=== PATIENT | female | born 1995 | race Caucasian/White ===

== ENCOUNTER 2017-08-26 13:23 | Observation (INO) | payer MEDICAID | END 2017-08-26 15:40 | disposition home or self-care (01) | LOC: MED SURG 13:23 → UNDOADMOB 13:23 → OB 13:23 → UNDODISOB 15:40 | PROVIDERS: ADMIT Family Medicine; ATTEND Family Medicine | DX: Z34.80 Encounter for supervision of other normal pregnancy, unspecified trimester (principal) | CPT/HCPCS: 59025; G0378 ==

== ENCOUNTER 2017-10-08 03:45 | Emergency (ER) | payer MEDICAID ==
--- NOTE | 2017-10-08 04:13 | ERPHSYRPT ---
- History of Present Illness Time Seen by Provider: 10/08/17 04:06 Historian: patient Exam Limitations: no limitations Patient Subjective Stated Complaint: pt states she started having paihn in her upper abd srappint around to back and ribs approx 30 minutes ago Triage Nursing Assessment: pt alert and oriented, answers questions approp. pt restless in bed and moaning with pain. respirations nonlabored with lugns cta. pt c/o epigastric pain wrapping around ribs to back. o2 100 on room air. Physician History: The patient is a 21-year-old female with her complaining of a sudden onset of upper abdominal pain that has wrapped around to her back began about an hour ago. This pain also occurred while she was but it lasted only about 10 minutes. She delivered a healthy baby about 4 weeks ago by . She's had no problems after the until an hour ago. She was slightly nauseated. She ate a pizza 8 hours ago. Timing/Duration: hour(s) (1) Activities at Onset: none Quality: sharpness, stabbing Abdominal Pain Onset Location: RUQ Pain Radiation: back Severity of Pain-Max: severe Severity of Pain-Current: severe Modifying Factors: Improves With: nothing Associated Symptoms: nausea Previous symptoms: same symptoms as today Allergies/Adverse Reactions: carbinoxamine [From Pediox] Allergy (Verified 10/08/17 04:01) chlorpheniramine [From Pediox] Allergy (Verified 10/08/17 04:01) pseudoephedrine [From Pediox] Allergy (Verified 10/08/17 04:01) Home Medications: Levothyroxine Sodium 112 Mcg [Synthroid 112 Mcg] 112 mcg PO DAILY 08/26/17 [History] Hx Tetanus, Diphtheria Vaccination/Date Given: Yes Hx Influenza Vaccination/Date Given: Yes Hx Pneumococcal Vaccination/Date Given: No Immunizations Up to Date: Yes - Review of Systems Constitutional: No Fever, No Chills Eyes: No Symptoms Ears, Nose, & Throat: No Symptoms Respiratory: No Cough, No Dyspnea Cardiac: No Chest Pain, No Edema, No Syncope Abdominal/Gastrointestinal: Abdominal Pain, Nausea Genitourinary Symptoms: No Dysuria Musculoskeletal: No Back Pain, No Neck Pain Skin: No Rash Neurological: No Dizziness, No Focal Weakness, No Sensory Changes Psychological: No Symptoms Endocrine: No Symptoms Hematologic/Lymphatic: No Symptoms Immunological/Allergic: No Symptoms All Other Systems: Reviewed and Negative - Past Medical History Other Medical History: narrowing of heart valve - Past Surgical History Past Surgical History: Yes Other Surgical History: heart surgery as a child. tubes as a child - Social History Smoking Status: Never smoker Exposure to second hand smoke: No Drug Use: none Patient Lives Alone: No - Female History Hx Last Menstrual Period: post Hx Now: No - Nursing Vital Signs Nursing Vital Signs: Initial Vital Signs Temperature 96.4 F 10/08/17 03:53 Pulse Rate 71 10/08/17 03:53 Respiratory Rate 24 10/08/17 03:53 Blood Pressure 91/51 10/08/17 03:53 O2 Sat by Pulse Oximetry 100 10/08/17 03:53 Pain Scale Pain Intensity 10 - Physical Exam General Appearance: moderate distress Eye Exam: PERRL/EOMI, eyes nml inspection Ears, Nose, Throat Exam: normal ENT inspection, pharynx normal, moist mucous membranes Neck Exam: normal inspection, non-tender, supple, full range of motion Respiratory Exam: normal breath sounds, lungs clear, No respiratory distress Cardiovascular Exam: regular rate/rhythm, normal heart sounds Gastrointestinal/Abdomen Exam: tenderness (RUQ) Pelvic Exam: not done Rectal Exam: not done Back Exam: normal inspection, normal range of motion, No CVA tenderness, No vertebral tenderness Extremity Exam: normal inspection, normal range of motion, pelvis stable Neurologic Exam: alert, oriented x 3, cooperative, normal mood/affect, nml cerebellar function, sensation nml, No motor deficits Skin Exam: normal color, warm, dry SpO2 Interpretation: normal SpO2: 100 Oxygen Delivery: Room Air - CT Exams Abdomen/Pelvis CT Interpretation: Negative, Tele-radiologist Report (per Dr Oakes.) Ordered Tests: Active Orders 24 hr Category Date Time Status IV Insertion STAT Care 10/08/17 04:18 Active ABDOMEN AND PELVIS W/0 CONTRAS [CT] Stat Exams 10/08/17 04:38 Taken CBC W DIFF Stat Lab 10/08/17 04:15 Completed CMP Stat Lab 10/08/17 04:15 Completed LIPASE Stat Lab 10/08/17 04:15 Completed Medication Summary Discontinued Medications Generic Name Dose Route Start Last Admin Trade Name Freq PRN Reason Stop Dose Admin Sodium Chloride 1,000 mls @ 999 mls/hr 10/08/17 04:37 10/08/17 04:49 Sodium Chloride 0.9% 1000 Ml IV 10/08/17 05:37 999 mls/hr .Q1H1M STA Administration Sodium Chloride Confirm 10/08/17 04:48 Sodium Chloride 0.9% 1000 Ml Administered 10/08/17 04:49 Dose 1,000 mls @ ud .ROUTE .STK-MED ONE Morphine Sulfate 8 mg 10/08/17 04:37 10/08/17 04:49 Morphine Sulfate 10 Mg/Ml IV 10/08/17 04:38 8 mg STAT ONE Administration Morphine Sulfate Confirm 10/08/17 04:47 Morphine Sulfate 10 Mg/Ml Administered 10/08/17 04:48 Dose 10 mg .ROUTE .STK-MED ONE Ondansetron HCl 4 mg 10/08/17 04:37 10/08/17 04:49 Zofran 4 Mg/2 Ml Vial IV 10/08/17 04:38 4 mg STAT ONE Administration Ondansetron HCl Confirm 10/08/17 04:47 Zofran 4 Mg/2 Ml Vial Administered 10/08/17 04:48 Dose 4 mg .ROUTE .STK-MED ONE Lab/Rad Data: Laboratory Result Diagrams 10/08/17 04:15 10/08/17 04:15 Laboratory Results 10/08/17 10/08/17 Range/Units 04:15 04:15 WBC 5.2 (4.0-10.5) K/mm3 RBC 3.85 L (4.1-5.4) M/mm3 Hgb 12.1 (12.0-16.0) gm/dl Hct 36.1 (35-47) % MCV 93.8 (78-100) fl MCH 31.4 (26-32) pg MCHC 33.5 (32-36) g/dl RDW 12.7 (11.5-14.0) % Plt Count 265 (150-450) K/mm3 MPV 10.0 H (6-9.5) fl Gran % 56.5 (36.0-66.0) % Lymphocytes % 32.9 (24.0-44.0) % Monocytes % 7.7 (0.0-12.0) % Eosinophils % 2.5 (0.00-5.0) % Basophils % 0.4 (0.0-0.4) % Basophils # 0.02 (0-0.4) Sodium 144 (136-145) mEq/L Potassium 3.8 (3.5-5.1) mEq/L Chloride 105 (98-107) mEq/L Carbon Dioxide 27.4 (21-32) mEq/L Anion Gap 15.6 H (5-15) MEQ/L BUN 14 (9-20) mg/dL Creatinine 1.07 (0.55-1.30) mg/dl Estimated GFR > 60 ML/MIN Glucose 116 H (70-110) MG/DL Calcium 8.9 (8.5-10.1) mg/dL Total Bilirubin 0.40 (0.2-1.0) mg/dL AST 34 (15-37) U/L ALT 54 (12-78) U/L Alkaline Phosphatase 54 (46-116) U/L Serum Total Protein 7.7 (6.4-8.2) gm/dL Albumin 3.5 (3.4-5.0) g/dL Lipase 161 (73-393) U/L - Progress Progress: improved Progress Note: 10/08/17 04:17 After the PE and I left the room, the pain resolved. 10/08/17 04:37 Pt's pain has returned. 10/08/17 06:03 Pt given MSO4 8 mg, zofran 4 mg, and fluids by IV with good results. Counseled pt/family regarding: lab results, diagnosis, need for follow-up, rad results - Departure Time of Disposition: 06:04 Departure Disposition: Home Clinical Impression: Biliary colic Condition: Stable Critical Care Time: No Referrals: DOCTOR,NO FAMILY [Primary Care Provider] - Additional Instructions: You have biliary colic. The CT scan of the abdomen did not show any stones in the gallbladder. You need to have an ultrasound done of the gallbladder. This is more sensitive for gallstones than the CT scan. You were given morphine 8 mg , Zofran 4 mg, and fluids by IV in the ER. Follow-up for further evaluation. Avoid eating fatty foods.
[2017-10-08 04:35] LABS: BASOPHIL % 0.4 % (0.0-0.4); Eosinophil % 2.5 % (0.00-5.0); Granulocytes % 56.5 % (36.0-66.0); Lymphocytes % 32.9 % (24.0-44.0); Mean Cell Volume 93.8 fl (78-100); Mean Corpuscular Hemoglobin 31.4 pg (26-32); Monocytes % 7.7 % (0.0-12.0); Platelet Count 265 K/mm3 (150-450); Red Blood Count 3.85 M/mm3 (4.1-5.4); Red Cell Distribution Width 12.7 % (11.5-14.0); White Blood Count 5.2 K/mm3 (4.0-10.5)
[2017-10-08] MEDS ORDERED: MORPHINE SULFATE 10 MG/ML IV ONE (04:37)
[2017-10-08] MEDS ORDERED: Sodium Chloride 0.9% 1000 ML 1,000 ML IV STA (04:37)
[2017-10-08] MEDS ORDERED: Zofran 4 MG/2 ML VIAL IV ONE (04:37)
[2017-10-08] MEDS ORDERED: Zofran 4 MG/2 ML VIAL ONE (04:47)
[2017-10-08] MEDS ORDERED: MORPHINE SULFATE 10 MG/ML ONE (04:47)
[2017-10-08] MEDS ORDERED: Sodium Chloride 0.9% 1000 ML 1,000 ML ONE (04:48)
[2017-10-08 04:55] LABS: ALBUMIN 3.5 g/dL (3.4-5.0); ALKALINE PHOSPHATASE 54 U/L (46-116); ANION GAP 15.6 MEQ/L (5-15); BLOOD UREA NITROGEN 14 mg/dL (9-20); CHLORIDE 105 mEq/L (98-107); Carbon Dioxide 27.4 mEq/L (21-32); Glucose 116 MG/DL (70-110); LIPASE 161 U/L (73-393); Potassium 3.8 mEq/L (3.5-5.1); SGOT/AST 34 U/L (15-37); SGPT/ALT 54 U/L (12-78); SODIUM 144 mEq/L (136-145); Total Protein 7.7 gm/dL (6.4-8.2)
[2017-10-08 06:01] VITALS: BP 137/65
[2017-10-08 06:32] VITALS: PULSE 66; O2SAT 99
--- NOTE | 2017-10-08 08:44 | XRAY ---
Indication: Sudden onset abdominal pain. Multiple contiguous axial images obtained through the abdomen and pelvis without contrast as ordered. Comparison: None. Lung bases are clear. Heart is not enlarged. Stomach is distended with food/fluid. Noncontrasted stomach and bowel loops again appear nonobstructed. Normal appendix. No free fluid/air. Remaining liver, gallbladder, pancreas, spleen, adrenal glands, kidneys, ureters, bladder, uterus, and aorta appear unremarkable for noncontrast exam. Osseous structures intact. Impression: Negative CT abdomen/pelvis without contrast exam. Comment: Preliminary interpretation was made by [facility]. No discrepancy. CT DI 23.68
== END 2017-10-08 06:27 | disposition home or self-care (01) ==
LOC: ED 03:45
DX: K80.50 Calculus of bile duct without cholangitis or cholecystitis without obstruction (principal); R10.10 Upper abdominal pain, unspecified; R10.13 Epigastric pain; R11.0 Nausea
CPT/HCPCS: 36000; 36415; 74176; 80053; 83690; 85025; 96360; 96361; 96374; 96375; 99284; J2270; J2405

== ENCOUNTER 2017-10-26 05:25 | Emergency (ER) | payer MEDICAID ==
[2017-10-26 05:40] VITALS: PULSE 65; O2SAT 99
[2017-10-26] MEDS ORDERED: Sodium Chloride 0.9% 1000 ML 1,000 ML IV STA (05:53)
[2017-10-26] MEDS ORDERED: TORAdol 30 mg Injection IV ONE (05:53)
[2017-10-26] MEDS ORDERED: Zofran 4 MG/2 ML VIAL IV ONE (05:53)
[2017-10-26] MEDS ORDERED: Pepcid 20 MG VIAL IV ONE (05:54)
--- NOTE | 2017-10-26 06:01 | ERPHSYRPT ---
- History of Present Illness Time Seen by Provider: 10/26/17 05:52 Historian: patient Exam Limitations: no limitations Patient Subjective Stated Complaint: Abdominal pain Triage Nursing Assessment: Pt states initial onset of upper right quadrant abdominal pain beginning 3-4 months ago, states at 09/12/2017 with continued abdominal pain after. Pt states she had Hida scan yesterday and continued pain today. Physician History: Pt was diagnosed with gallstones last week. She woke up with severe RUQ abdominal pain at 2 AM, nauseated. She denies vomiting, diarrhea, fever, other complaints. She underwent HIDA scan yesterday, revealing possible cystic duct obstruction. Timing/Duration: hour(s) (4), worse Activities at Onset: none Quality: cramping Abdominal Pain Onset Location: RUQ Pain Radiation: back Severity of Pain-Max: severe Severity of Pain-Current: severe Modifying Factors: Improves With: nothing Associated Symptoms: nausea Previous symptoms: same symptoms as today Allergies/Adverse Reactions: carbinoxamine [From Pediox] Allergy (Verified 10/08/17 04:01) chlorpheniramine [From Pediox] Allergy (Verified 10/08/17 04:01) pseudoephedrine [From Pediox] Allergy (Verified 10/08/17 04:01) Home Medications: Levothyroxine Sodium 112 Mcg [Synthroid 112 Mcg] 112 mcg PO DAILY 08/26/17 [History] Hx Tetanus, Diphtheria Vaccination/Date Given: Yes Hx Influenza Vaccination/Date Given: Yes Hx Pneumococcal Vaccination/Date Given: No Immunizations Up to Date: Yes - Review of Systems Constitutional: No Symptoms Abdominal/Gastrointestinal: Abdominal Pain, Nausea All Other Systems: Reviewed and Negative - Past Medical History Pertinent Past Medical History: Yes Neurological History: No Pertinent History ENT History: No Pertinent History Cardiac History: No Pertinent History Respiratory History: No Pertinent History Endocrine Medical History: No Pertinent History Musculoskeletal History: No Pertinent History GI Medical History: No Pertinent History History: No Pertinent History Psycho-Social History: No Pertinent History Female Reproductive Disorders: No Pertinent History Other Medical History: narrowing of heart valve - Past Surgical History Past Surgical History: Yes Neuro Surgical History: No Pertinent History Cardiac: No Pertinent History Respiratory: No Pertinent History Gastrointestinal: No Pertinent History Genitourinary: No Pertinent History Musculoskeletal: No Pertinent History Female Surgical History: Section Other Surgical History: heart surgery as a child. tubes as a child - Social History Smoking Status: Never smoker Exposure to second hand smoke: No Drug Use: none Patient Lives Alone: Yes - Female History Hx Now: No - Nursing Vital Signs Nursing Vital Signs: Initial Vital Signs Temperature 97.3 F 10/26/17 05:35 Pulse Rate 65 10/26/17 05:35 Respiratory Rate 16 10/26/17 05:35 Blood Pressure 204/86 10/26/17 05:35 O2 Sat by Pulse Oximetry 99 10/26/17 05:35 Pain Scale Pain Intensity 10 - Physical Exam General Appearance: no apparent distress Eye Exam: eyes nml inspection Ears, Nose, Throat Exam: normal ENT inspection Neck Exam: normal inspection, non-tender Respiratory Exam: normal breath sounds, lungs clear Cardiovascular Exam: regular rate/rhythm, normal heart sounds, normal peripheral pulses, No murmur Gastrointestinal/Abdomen Exam: soft, normal bowel sounds, tenderness (mod. RUQ) , No distention, No mass, No guarding, No rebound Back Exam: normal inspection, No CVA tenderness Extremity Exam: normal inspection Neurologic Exam: alert, oriented x 3, cooperative, normal mood/affect Skin Exam: normal color, warm, dry, No rash Lymphatic Exam: No adenopathy SpO2: 99 Oxygen Delivery: Room Air - Course Nursing assessment & vital signs reviewed: Yes Ordered Tests: Active Orders 24 hr Category Date Time Status IV Insertion STAT Care 10/26/17 05:53 Active AMYLASE Stat Lab 10/26/17 05:53 Ordered CBC W DIFF Stat Lab 10/26/17 05:53 Ordered CMP Stat Lab 10/26/17 05:53 Ordered HCG,QUALITATIVE URINE Stat Lab 10/26/17 06:01 Ordered LIPASE Stat Lab 10/26/17 05:53 Ordered Lactic Acid Stat Lab 10/26/17 05:53 Ordered PROTIME WITH INR Stat Lab 10/26/17 05:53 Ordered UA W/RFX UR CULTURE Stat Lab 10/26/17 05:53 Ordered Medication Summary Generic Name Dose Route Start Last Admin Trade Name Freq PRN Reason Stop Dose Admin Sodium Chloride 1,000 mls @ 999 mls/hr 10/26/17 05:53 Sodium Chloride 0.9% 1000 Ml IV 10/26/17 06:53 .Q1H1M STA Discontinued Medications Generic Name Dose Route Start Last Admin Trade Name Freq PRN Reason Stop Dose Admin Famotidine 20 mg 10/26/17 05:54 Pepcid 20 Mg Vial IV 10/26/17 05:55 STAT ONE Ketorolac Tromethamine 30 mg 10/26/17 05:53 Toradol 30 Mg Injection IV 10/26/17 05:54 STAT ONE Ondansetron HCl 4 mg 10/26/17 05:53 Zofran 4 Mg/2 Ml Vial IV 10/26/17 05:54 STAT ONE - Progress Progress: improved Progress Note: 10/26/17 06:06 Pt states, her pain completely resolved, she feels 100% better, denies nausea, she is afebrile, and stable, refused labs iv. access and further tretament, wants to go home and follow up with her PCP, and surgeon. I gave her Rx for , educated her about possible complications, and asked to return immediately if severe pain, vomiting, or fever> 102 F. - Departure Time of Disposition: 06:07 Departure Disposition: Home Clinical Impression: Biliary colic Condition: Stable Critical Care Time: No Referrals: EMILY MARTINEZ [Primary Care Provider] - Additional Instructions: Rest x2-3 days, continue liquid diet, follow up with your primary care doctor and surgeon, return if severe pain, vomiting, or fever> 102 F! Prescriptions: Phenobarb/Hyoscy/Atropine/Scop [ Tablet] 16.2 mg PO Q6H #20 tablet
[2017-10-26 06:07] VITALS: BP 145/88
== END 2017-10-26 06:21 | disposition home or self-care (01) ==
LOC: ED 05:25
DX: K80.50 Calculus of bile duct without cholangitis or cholecystitis without obstruction (principal); R11.0 Nausea; Z79.899 Other long term (current) drug therapy
CPT/HCPCS: 99281

== ENCOUNTER 2017-11-07 16:50 | Emergency (ER) | payer MEDICAID ==
[2017-11-07] MEDS ORDERED: Zofran 4 MG/2 ML VIAL IV ONE (17:04)
[2017-11-07] MEDS ORDERED: MORPHINE SULFATE 4 MG INJ IV ONE (17:04)
[2017-11-07] MEDS ORDERED: Sodium Chloride 0.9% 1000 ML 1,000 ML IV STA (17:04)
--- NOTE | 2017-11-07 17:09 | ERPHSYRPT ---
- History of Present Illness Time Seen by Provider: 11/07/17 16:59 Historian: patient Exam Limitations: no limitations Patient Subjective Stated Complaint: PT REPORTS SHE ATE [place] ET BEGAN HAVING ABD PAIN-PT HAS KNOWN BAD GALL BLADDER-DENIES VOMITING OR DIARRHEA Triage Nursing Assessment: PT PINK WARM ET [id number] SOFT ET TENDER TO PALP- BOWEL SOUND SPRESENT Physician History: 21-year-old white female with history of epigastric pain and problems with her gallbladder, arrives with complaint of pain in the epigastric region occurring since around 1:00. According to patient she has a history of sludge in her gallbladder she had an abnormal HIDA scan. She had seen her surgeon today and apparently had scheduled cholecystectomy for November 20 she states she went out to eat and had cheese ravioli she began to have pain in her epigastric region. She states she has some vomiting yesterday. No fevers. Past medical history includes narrowing of her heart valve. Past surgical history includes and heart surgery as a child, myringotomy tubes as a child. Social history patient denies tobacco alcohol or illicit drug use. Timing/Duration: today Activities at Onset: other (ate cheese ravioli) Quality: cramping Abdominal Pain Onset Location: epigastric Pain Radiation: no radiation Severity of Pain-Max: moderate Severity of Pain-Current: moderate Modifying Factors: Improves With: nothing Associated Symptoms: nausea, vomiting (Vomited yesterday), No back, No chest pain, No diaphoresis, No diarrhea, No fever/chills, No fatigue, No headache, No heartburn, No loss of appetite, No neck pain, No rash, No shortness of breath, No syncope Previous symptoms: same symptoms as today (patient with similar symptoms secondary to her gallbladder) Allergies/Adverse Reactions: carbinoxamine [From Pediox] Allergy (Verified 11/07/17 16:59) chlorpheniramine [From Pediox] Allergy (Verified 11/07/17 16:59) pseudoephedrine [From Pediox] Allergy (Verified 11/07/17 16:59) Home Medications: Levothyroxine Sodium 112 Mcg [Synthroid 112 Mcg] 112 mcg PO DAILY 08/26/17 [History] Hx Tetanus, Diphtheria Vaccination/Date Given: Yes Hx Influenza Vaccination/Date Given: Yes Hx Pneumococcal Vaccination/Date Given: No Immunizations Up to Date: Yes - Review of Systems Constitutional: No Fever, No Chills Eyes: No Symptoms Ears, Nose, & Throat: No Symptoms Respiratory: No Cough, No Dyspnea Cardiac: No Chest Pain, No Edema, No Syncope Abdominal/Gastrointestinal: Abdominal Pain, Nausea, Vomiting, No Diarrhea, No Constipation, No Hematemesis, No Hematochezia, No Melena, No Dysphagia, No Appetite Changes Genitourinary Symptoms: No Dysuria Musculoskeletal: No Back Pain, No Neck Pain Skin: No Rash Neurological: No Dizziness, No Focal Weakness, No Sensory Changes Psychological: No Symptoms Endocrine: No Symptoms All Other Systems: Reviewed and Negative - Past Medical History Pertinent Past Medical History: Yes Neurological History: No Pertinent History ENT History: No Pertinent History Cardiac History: No Pertinent History Respiratory History: No Pertinent History Endocrine Medical History: No Pertinent History Musculoskeletal History: No Pertinent History GI Medical History: No Pertinent History History: No Pertinent History Psycho-Social History: No Pertinent History Female Reproductive Disorders: No Pertinent History Other Medical History: narrowing of heart valve - Past Surgical History Past Surgical History: Yes Neuro Surgical History: No Pertinent History Cardiac: No Pertinent History Respiratory: No Pertinent History Gastrointestinal: No Pertinent History Genitourinary: No Pertinent History Musculoskeletal: No Pertinent History Female Surgical History: Section Other Surgical History: heart surgery as a child. tubes as a child - Social History Smoking Status: Never smoker Exposure to second hand smoke: No Drug Use: none Patient Lives Alone: Yes - Female History Hx Last Menstrual Period: OCT 19 Hx Now: No - Nursing Vital Signs Nursing Vital Signs: Initial Vital Signs Temperature 97.3 F 11/07/17 17:00 Pulse Rate 68 11/07/17 17:00 Respiratory Rate 18 11/07/17 17:00 Blood Pressure 136/71 11/07/17 17:00 O2 Sat by Pulse Oximetry 98 11/07/17 17:00 Pain Scale Pain Intensity 0 - Physical Exam General Appearance: mild distress Eye Exam: PERRL/EOMI, eyes nml inspection Ears, Nose, Throat Exam: normal ENT inspection, pharynx normal, moist mucous membranes Neck Exam: normal inspection, non-tender, supple, full range of motion Respiratory Exam: normal breath sounds, lungs clear, No respiratory distress Cardiovascular Exam: regular rate/rhythm, normal heart sounds Gastrointestinal/Abdomen Exam: soft, normal bowel sounds, tenderness ( epigastric tenderness), No distention, No mass, No guarding, No ecchymosis, No pulsatile mass, No rebound, No hernia, No hepatomegaly, No organomegaly, No splenomegaly, No bruit Back Exam: normal inspection, normal range of motion, No CVA tenderness, No vertebral tenderness Extremity Exam: normal inspection, normal range of motion, pelvis stable Neurologic Exam: alert, oriented x 3, cooperative, normal mood/affect, nml cerebellar function, sensation nml, No motor deficits Skin Exam: normal color, warm, dry SpO2 Interpretation: normal (98%) SpO2: 98 Oxygen Delivery: Room Air Ordered Tests: Active Orders 24 hr Category Date Time Status IV Insertion STAT Care 11/07/17 17:04 Active AMYLASE Stat Lab 11/07/17 17:15 Completed CBC W DIFF Stat Lab 11/07/17 17:15 Completed CMP Stat Lab 11/07/17 17:15 Completed HCG QUALITATIVE,SERUM Stat Lab 11/07/17 17:15 Completed LIPASE Stat Lab 11/07/17 17:15 Completed Medication Summary Discontinued Medications Generic Name Dose Route Start Last Admin Trade Name Freq PRN Reason Stop Dose Admin Sodium Chloride 1,000 mls @ 999 mls/hr 11/07/17 17:04 11/07/17 17:15 Sodium Chloride 0.9% 1000 Ml IV 11/07/17 18:04 999 mls/hr .Q1H1M STA Administration Sodium Chloride Confirm 11/07/17 17:12 Sodium Chloride 0.9% 1000 Ml Administered 11/07/17 17:13 Dose 1,000 mls @ ud .ROUTE .STK-MED ONE Morphine Sulfate 4 mg 11/07/17 17:04 11/07/17 17:15 Morphine Sulfate 4 Mg Inj IV 11/07/17 17:05 4 mg STAT ONE Administration Morphine Sulfate Confirm 11/07/17 17:12 Morphine Sulfate 4 Mg Inj Administered 11/07/17 17:13 Dose 4 mg .ROUTE .STK-MED ONE Ondansetron HCl 4 mg 11/07/17 17:04 11/07/17 17:15 Zofran 4 Mg/2 Ml Vial IV 11/07/17 17:05 4 mg STAT ONE Administration Ondansetron HCl Confirm 11/07/17 17:12 Zofran 4 Mg/2 Ml Vial Administered 11/07/17 17:13 Dose 4 mg .ROUTE .STK-MED ONE Lab/Rad Data: Laboratory Result Diagrams 11/07/17 17:15 11/07/17 17:15 Laboratory Results 11/07/17 11/07/17 11/07/17 Range/Units 17:15 17:15 17:15 WBC 5.4 (4.0-10.5) K/mm3 RBC 3.72 L (4.1-5.4) M/mm3 Hgb 11.5 L (12.0-16.0) gm/dl Hct 33.9 L (35-47) % MCV 91.1 (78-100) fl MCH 30.9 (26-32) pg MCHC 33.9 (32-36) g/dl RDW 13.8 (11.5-14.0) % Plt Count 246 (150-450) K/mm3 MPV 10.3 H (6-9.5) fl Gran % 54.8 (36.0-66.0) % Lymphocytes % 35.5 (24.0-44.0) % Monocytes % 7.1 (0.0-12.0) % Eosinophils % 2.0 (0.00-5.0) % Basophils % 0.6 (0.0-0.4) % Basophils # 0.03 (0-0.4) Sodium 139 (136-145) mEq/L Potassium 4.7 (3.5-5.1) mEq/L Chloride 103 (98-107) mEq/L Carbon Dioxide 23.5 (21-32) mEq/L Anion Gap 16.8 H (5-15) MEQ/L BUN 10 (9-20) mg/dL Creatinine 0.87 (0.55-1.30) mg/dl Estimated GFR > 60 ML/MIN Glucose 85 (70-110) MG/DL Calcium 9.5 (8.5-10.1) mg/dL Total Bilirubin 0.60 (0.2-1.0) mg/dL AST 111 H (15-37) U/L ALT 87 H (12-78) U/L Alkaline Phosphatase 67 (46-116) U/L Serum Total Protein 7.8 (6.4-8.2) gm/dL Albumin 3.6 (3.4-5.0) g/dL Amylase 44 (25-115) U/L Lipase 157 (73-393) U/L Serum , Qual NEGATIVE (Negative) - Progress Progress: improved Progress Note: 11/07/17 17:55 21-year-old white female with history of known gallbladder sludge. She is scheduled for cholecystectomy surgery November 18. Patient apparently was seen by her surgeon today and went to [place] thereafter, she began to have epigastric pain nausea. Patient is given normal saline 1 L morphine 4 mg IV and Zofran 4 mg IV. She is feeling much better, CBC is essentially normal awaiting amylase lipase hCG and chemistry. Anticipate discharge. Patient will be warned to avoid fatty foods. 11/07/17 18:06 Patient feeling much better. Labs essentially normal with the exception of mild elevation of sgot and sgpt. Will discharge. 11/07/17 18:08 - Departure Time of Disposition: 18:06 Departure Disposition: Home Clinical Impression: Biliary colic Abdominal pain Qualifiers: Abdominal location: epigastric Qualified Code(s): R10.13 - Epigastric pain Condition: Fair Critical Care Time: No Referrals: EMILY MARTINEZ [Primary Care Provider] - Additional Instructions: Return home. Plenty of fluids clear fluids only 24-48 hours if abdominal pain. Follow-up with your surgeon or your family doctor. Avoid fatty foods. Return for acute distress or for severe symptoms. Tylenol every 4-6 hours as needed for pain.
[2017-11-07] MEDS ORDERED: Sodium Chloride 0.9% 1000 ML 1,000 ML ONE (17:12)
[2017-11-07] MEDS ORDERED: Zofran 4 MG/2 ML VIAL ONE (17:12)
[2017-11-07] MEDS ORDERED: MORPHINE SULFATE 4 MG INJ ONE (17:12)
[2017-11-07 17:26] LABS: BASOPHIL % 0.6 % (0.0-0.4); Basophil (Absolute #) 0.03 (0-0.4); Eosinophil (Absolute #) 0.11 (0-0.5); Granulocyte Absolute (ANC) 2.95 (1.4-6.9); Granulocytes % 54.8 % (36.0-66.0); Hematocrit 33.9 % (35-47); Hemoglobin 11.5 gm/dl (12.0-16.0); Lymphocyte (Absolute #) 1.91 (1.0-4.6); Lymphocytes % 35.5 % (24.0-44.0); Mean Cell Volume 91.1 fl (78-100); Mean Corpuscular Hemoglobin 30.9 pg (26-32); Mean Corpuscular Hgb Concent. 33.9 g/dl (32-36); Mean Platelet Volume 10.3 fl (6-9.5); Monocyte (Absolute #) 0.38 (0.0-1.3); Monocytes % 7.1 % (0.0-12.0); Platelet Count 246 K/mm3 (150-450); Red Blood Count 3.72 M/mm3 (4.1-5.4); Red Cell Distribution Width 13.8 % (11.5-14.0); White Blood Count 5.4 K/mm3 (4.0-10.5)
[2017-11-07 17:58] VITALS: BP 142/63; PULSE 63
[2017-11-07 17:59] LABS: ALBUMIN 3.6 g/dL (3.4-5.0); ALKALINE PHOSPHATASE 67 U/L (46-116); AMYLASE 44 U/L (25-115); ANION GAP 16.8 MEQ/L (5-15); BLOOD UREA NITROGEN 10 mg/dL (9-20); CHLORIDE 103 mEq/L (98-107); Calcium 9.5 mg/dL (8.5-10.1); Carbon Dioxide 23.5 mEq/L (21-32); Creatinine 1 0.87 mg/dl (0.55-1.30); EST GLOMERULAR FILTRATION RATE > 60 ML/MIN; Glucose 85 MG/DL (70-110); LIPASE 157 U/L (73-393); SGOT/AST 111 U/L (15-37); SGPT/ALT 87 U/L (12-78); SODIUM 139 mEq/L (136-145); Total Protein 7.8 gm/dL (6.4-8.2)
[2017-11-07 18:03] LABS: Potassium 4.7 mEq/L (3.5-5.1)
[2017-11-07 18:19] VITALS: O2SAT 98
== END 2017-11-07 18:20 | disposition home or self-care (01) ==
LOC: ED 16:50
DX: K80.50 Calculus of bile duct without cholangitis or cholecystitis without obstruction (principal); R10.13 Epigastric pain
CPT/HCPCS: 36000; 36415; 80053; 82150; 83690; 84703; 85025; 96360; 96374; 96375; 99284; J2270; J2405

== ENCOUNTER 2017-11-09 06:18 | Emergency (ER) | payer MEDICAID ==
[2017-11-09] MEDS ORDERED: Sodium Chloride 0.9% 1000 ML 1,000 ML IV STA (06:27)
[2017-11-09] MEDS ORDERED: Pepcid 20 MG VIAL IV ONE ×2 (06:27→06:48)
[2017-11-09] MEDS ORDERED: Zofran 4 MG/2 ML VIAL IV ONE (06:38)
[2017-11-09] MEDS ORDERED: Hydromorphone 1 mg/ml Ampule IV ONE (06:38)
[2017-11-09] MEDS ORDERED: Sodium Chloride 0.9% 1000 ML 1,000 ML ONE (06:48)
[2017-11-09] MEDS ORDERED: Hydromorphone 1 mg/ml Ampule ONE (06:48)
[2017-11-09] MEDS ORDERED: Zofran 4 MG/2 ML VIAL ONE (06:48)
[2017-11-09 06:49] LABS: BASOPHIL % 0.6 % (0.0-0.4); Basophil (Absolute #) 0.02 (0-0.4); Eosinophil % 1.1 % (0.00-5.0); Eosinophil (Absolute #) 0.04 (0-0.5); Granulocyte Absolute (ANC) 2.14 (1.4-6.9); Granulocytes % 58.9 % (36.0-66.0); Hematocrit 37.1 % (35-47); Hemoglobin 12.5 gm/dl (12.0-16.0); Lymphocyte (Absolute #) 1.25 (1.0-4.6); Lymphocytes % 34.4 % (24.0-44.0); Mean Cell Volume 92.3 fl (78-100); Mean Corpuscular Hgb Concent. 33.7 g/dl (32-36); Mean Platelet Volume 9.8 fl (6-9.5); Monocyte (Absolute #) 0.18 (0.0-1.3); Platelet Count 251 K/mm3 (150-450); Red Blood Count 4.02 M/mm3 (4.1-5.4); Red Cell Distribution Width 13.8 % (11.5-14.0); White Blood Count 3.6 K/mm3 (4.0-10.5)
[2017-11-09 06:52] LABS: Appearance CLEAR (CLEAR); Glucose NEGATIVE (NEGATIVE); Ketones NEGATIVE (NEGATIVE); Leukocyte Esterase NEGATIVE (NEGATIVE); Nitrite NEGATIVE (NEGATIVE); Protein,Urine Dip NEGATIVE (Negative); Specific Gravity 1.015 (1.005-1.025); Urobilinogen 1 mg/dL (0-1)
[2017-11-09 06:53] LABS: Blood NEGATIVE Ery/ul (0-5)
[2017-11-09 07:16] LABS: ALBUMIN 3.9 g/dL (3.4-5.0); Direct Bilirubin 0.59 MG/DL (0.0-0.2); Total Protein 8.2 gm/dL (6.4-8.2)
--- NOTE | 2017-11-09 07:17 | ERPHSYRPT ---
- History of Present Illness Time Seen by Provider: 11/09/17 07:16 Historian: patient Exam Limitations: no limitations Patient Subjective Stated Complaint: gallbladder pain starting at midnight. pain radiate to back. nausea and vomiting. Triage Nursing Assessment: alert and uncomfortable. states abdominal pain starting at about midnight. abdomen soft but tender on palpation. + bowel sounds. nausea and vomiting. Physician History: The patient is a 21-year-old obese female with her complaining of right upper quadrant abdominal pain and nausea after eating turkey tetrazzini with butter on it last night. She has known gallbladder obstruction and is scheduled to have her gallbladder removed on November 20. I saw the patient on October 08 for the same problem. On October 25 she had a hydroscan that showed complete complete obstruction of the duct. She also had an ultrasound that showed sludge. She was seen in this ER by another physician on October 26 for abdominal pain and also on November 07 for abdominal pain. Each time that she comes in she's had a previous meal with fat. She has been instructed several times to avoid fat. Her past medical history is significant for right upper quadrant abdominal pain and . Timing/Duration: today Activities at Onset: none Quality: sharpness Abdominal Pain Onset Location: RUQ Pain Radiation: no radiation Severity of Pain-Max: moderate Severity of Pain-Current: moderate Associated Symptoms: nausea Previous symptoms: same symptoms as today Allergies/Adverse Reactions: carbinoxamine [From Pediox] Allergy (Verified 11/07/17 16:59) chlorpheniramine [From Pediox] Allergy (Verified 11/07/17 16:59) pseudoephedrine [From Pediox] Allergy (Verified 11/07/17 16:59) Home Medications: Levothyroxine Sodium 112 Mcg [Synthroid 112 Mcg] 112 mcg PO DAILY 08/26/17 [History] Hx Tetanus, Diphtheria Vaccination/Date Given: Yes Hx Influenza Vaccination/Date Given: Yes Hx Pneumococcal Vaccination/Date Given: No Immunizations Up to Date: Yes - Review of Systems Constitutional: No Fever, No Chills Eyes: No Symptoms Ears, Nose, & Throat: No Symptoms Respiratory: No Cough, No Dyspnea Cardiac: No Chest Pain, No Edema, No Syncope Abdominal/Gastrointestinal: Abdominal Pain, Nausea Genitourinary Symptoms: No Dysuria Musculoskeletal: No Back Pain, No Neck Pain Skin: No Rash Neurological: No Dizziness, No Focal Weakness, No Sensory Changes Psychological: No Symptoms Endocrine: No Symptoms Hematologic/Lymphatic: No Symptoms Immunological/Allergic: No Symptoms All Other Systems: Reviewed and Negative - Past Medical History Pertinent Past Medical History: Yes Neurological History: No Pertinent History ENT History: No Pertinent History Cardiac History: No Pertinent History Respiratory History: No Pertinent History Endocrine Medical History: No Pertinent History Musculoskeletal History: No Pertinent History GI Medical History: No Pertinent History History: No Pertinent History Psycho-Social History: No Pertinent History Female Reproductive Disorders: No Pertinent History Other Medical History: narrowing of heart valve - Past Surgical History Past Surgical History: Yes Neuro Surgical History: No Pertinent History Cardiac: No Pertinent History Respiratory: No Pertinent History Gastrointestinal: No Pertinent History Genitourinary: No Pertinent History Musculoskeletal: No Pertinent History Female Surgical History: Section Other Surgical History: heart surgery as a child. tubes as a child - Social History Smoking Status: Never smoker Exposure to second hand smoke: No Drug Use: none Patient Lives Alone: No - Female History Hx Last Menstrual Period: october 19 Hx Now: No - Nursing Vital Signs Nursing Vital Signs: Initial Vital Signs Temperature 97.4 F 11/09/17 06:23 Pulse Rate 86 11/09/17 06:23 Respiratory Rate 20 11/09/17 06:23 Blood Pressure 149/93 11/09/17 06:23 O2 Sat by Pulse Oximetry 98 11/09/17 06:23 Pain Scale Pain Intensity 9 - Physical Exam General Appearance: mild distress Eye Exam: PERRL/EOMI, eyes nml inspection Ears, Nose, Throat Exam: normal ENT inspection, pharynx normal, moist mucous membranes Neck Exam: normal inspection, non-tender, supple, full range of motion Respiratory Exam: normal breath sounds, lungs clear, No respiratory distress Cardiovascular Exam: regular rate/rhythm, normal heart sounds Gastrointestinal/Abdomen Exam: normal bowel sounds, tenderness (RU Q), No guarding Pelvic Exam: not done Rectal Exam: not done Back Exam: normal inspection, normal range of motion, No CVA tenderness, No vertebral tenderness Extremity Exam: normal inspection, normal range of motion, pelvis stable Neurologic Exam: alert, oriented x 3, cooperative, normal mood/affect, nml cerebellar function, sensation nml, No motor deficits Skin Exam: normal color, warm, dry SpO2 Interpretation: normal SpO2: 98 Oxygen Delivery: Room Air Ordered Tests: Active Orders 24 hr Category Date Time Status Clean Catch Urine Specimen STAT Care 11/09/17 06:27 Active IV Insertion STAT Care 11/09/17 06:27 Active NPO (ED) STAT Care 11/09/17 06:27 Active AMYLASE Stat Lab 11/09/17 06:40 Completed CBC W DIFF Stat Lab 11/09/17 06:40 Completed HCG QUALITATIVE,SERUM Stat Lab 11/09/17 06:40 Completed Hepatic Function Panel Stat Lab 11/09/17 06:40 Completed LIPASE Stat Lab 11/09/17 06:40 Completed Lactic Acid Stat Lab 11/09/17 06:29 Completed UA W/RFX UR CULTURE Stat Lab 11/09/17 06:40 Completed Medication Summary Discontinued Medications Generic Name Dose Route Start Last Admin Trade Name Freq PRN Reason Stop Dose Admin Famotidine 20 mg 11/09/17 06:27 11/09/17 06:50 Pepcid 20 Mg Vial IV 11/09/17 06:28 20 mg STAT ONE Administration Famotidine Confirm 11/09/17 06:48 Pepcid 20 Mg Vial Administered 11/09/17 06:49 Dose 20 mg IV .STK-MED ONE Hydromorphone HCl 1 mg 11/09/17 06:38 11/09/17 06:50 Hydromorphone 1 Mg/Ml Ampule IV 11/09/17 06:39 1 mg STAT ONE Administration Hydromorphone HCl Confirm 11/09/17 06:48 Hydromorphone 1 Mg/Ml Ampule Administered 11/09/17 06:49 Dose 1 mg .ROUTE .STK-MED ONE Sodium Chloride 1,000 mls @ 999 mls/hr 11/09/17 06:27 11/09/17 06:49 Sodium Chloride 0.9% 1000 Ml IV 11/09/17 07:27 999 mls/hr .Q1H1M STA Administration Sodium Chloride Confirm 11/09/17 06:48 Sodium Chloride 0.9% 1000 Ml Administered 11/09/17 06:49 Dose 1,000 mls @ ud .ROUTE .STK-MED ONE Ondansetron HCl 4 mg 11/09/17 06:38 11/09/17 06:50 Zofran 4 Mg/2 Ml Vial IV 11/09/17 06:39 4 mg STAT ONE Administration Ondansetron HCl Confirm 11/09/17 06:48 Zofran 4 Mg/2 Ml Vial Administered 11/09/17 06:49 Dose 4 mg .ROUTE .STK-MED ONE Lab/Rad Data: Laboratory Result Diagrams 11/09/17 06:40 Laboratory Results 11/09/17 11/09/17 11/09/17 Range/Units 06:40 06:40 06:40 WBC (4.0-10.5) K/mm3 RBC (4.1-5.4) M/mm3 Hgb (12.0-16.0) gm/dl Hct (35-47) % MCV (78-100) fl MCH (26-32) pg MCHC (32-36) g/dl RDW (11.5-14.0) % Plt Count (150-450) K/mm3 MPV (6-9.5) fl Gran % (36.0-66.0) % Lymphocytes % (24.0-44.0) % Monocytes % (0.0-12.0) % Eosinophils % (0.00-5.0) % Basophils % (0.0-0.4) % Basophils # (0-0.4) Lactic Acid (0.4-2.0) Total Bilirubin 1.00 (0.2-1.0) mg/dL Direct Bilirubin 0.59 H (0.0-0.2) MG/DL AST 440 H (15-37) U/L ALT 270 H (12-78) U/L Alkaline Phosphatase 78 (46-116) U/L Serum Total Protein 8.2 (6.4-8.2) gm/dL Albumin 3.9 (3.4-5.0) g/dL Amylase 42 (25-115) U/L Lipase 177 (73-393) U/L Serum , Qual NEGATIVE (Negative) Ur Collection Type CLEAN CATCH Urine Color YELLOW (YELLOW) Urine Appearance CLEAR (CLEAR) Urine pH 6.0 (5-6) Ur Specific [place] 1.015 (1.005-1.025) Urine Protein NEGATIVE (Negative) Urine Ketones NEGATIVE (NEGATIVE) Urine Blood NEGATIVE (0-5) Codey/ul Urine Nitrite NEGATIVE (NEGATIVE) Urine Bilirubin + (NEGATIVE) Urine Urobilinogen 1 (0-1) mg/dL Ur Leukocyte Esterase NEGATIVE (NEGATIVE) Urine Culture Reflexed NO (NO) Urine Glucose NEGATIVE (NEGATIVE) mg/dL Specimen Received 11/09/17 0642 11/09/17 11/09/17 Range/Units 06:40 06:29 WBC 3.6 L (4.0-10.5) K/mm3 RBC 4.02 L (4.1-5.4) M/mm3 Hgb 12.5 (12.0-16.0) gm/dl Hct 37.1 (35-47) % MCV 92.3 (78-100) fl MCH 31.0 (26-32) pg MCHC 33.7 (32-36) g/dl RDW 13.8 (11.5-14.0) % Plt Count 251 (150-450) K/mm3 MPV 9.8 H (6-9.5) fl Gran % 58.9 (36.0-66.0) % Lymphocytes % 34.4 (24.0-44.0) % Monocytes % 5.0 (0.0-12.0) % Eosinophils % 1.1 (0.00-5.0) % Basophils % 0.6 (0.0-0.4) % Basophils # 0.02 (0-0.4) Lactic Acid 1.4 (0.4-2.0) Total Bilirubin (0.2-1.0) mg/dL Direct Bilirubin (0.0-0.2) MG/DL AST (15-37) U/L ALT (12-78) U/L Alkaline Phosphatase (46-116) U/L Serum Total Protein (6.4-8.2) gm/dL Albumin (3.4-5.0) g/dL Amylase (25-115) U/L Lipase (73-393) U/L Serum , Qual (Negative) Ur Collection Type Urine Color (YELLOW) Urine Appearance (CLEAR) Urine pH (5-6) Ur Specific [place] (1.005-1.025) Urine Protein (Negative) Urine Ketones (NEGATIVE) Urine Blood (0-5) Codey/ul Urine Nitrite (NEGATIVE) Urine Bilirubin (NEGATIVE) Urine Urobilinogen (0-1) mg/dL Ur Leukocyte Esterase (NEGATIVE) Urine Culture Reflexed (NO) Urine Glucose (NEGATIVE) mg/dL Specimen Received - Progress Progress: improved Progress Note: 11/09/17 07:49 Prior to my arrival and evaluation of the patient, Dr. Mae had prescribed famotidine 20 mg, Zofran 4 mg, Dilaudid 1 mg, and fluids by IV. When I entered the room for interview and evaluation, the patient vomited once. The patient then received Phenergan 50 mg by IM and Toradol 30 mg by IV. I also instructed in detail about avoiding any fat in her diet. Counseled pt/family regarding: lab results, diagnosis, need for follow-up - Departure Time of Disposition: 07:51 Departure Disposition: Home Clinical Impression: Biliary colic Condition: Stable Critical Care Time: No Referrals: EMILY MARTINEZ [Primary Care Provider] - Additional Instructions: Once again you have biliary colic that is a result of eating fatty foods. Please read the labels on food and avoid any foods that are fatty in nature until you have your gallbladder removed on November 20. You were given famotidine 20 mg, Zofran 4 mg, Dilaudid 1 mg, Toradol 30 mg, and fluids by IV in the ER. You were also given Phenergan 50 mg by IM. If the condition worsens at any time, feel free to return to the ER. Otherwise, you were given a prescription for Phenergan 25 mg suppositories every 8 hours as needed for nausea and Dimock 5 mg every 4-6 hours as needed for pain. Prescriptions: Promethazine HCl 25 mg Supp [Phenergan 25 mg Supp] 25 mg HI Q8H PRN PRN # 12 supp.rect PRN Reason: Nausea/Vomiting Hydrocodone/APAP 5/325 [Dimock 5/325 mg] 1 each PO Q4-6HPRN PRN #6 tablet MDD 4 PRN Reason: Pain
[2017-11-09] MEDS ORDERED: Phenergan 25 MG INJ IM ONE (07:42)
[2017-11-09] MEDS ORDERED: TORAdol 30 mg Injection IV ONE (07:43)
[2017-11-09] MEDS ORDERED: Phenergan 25 MG INJ ONE (07:48)
[2017-11-09] MEDS ORDERED: TORAdol 30 mg Injection ONE (07:48)
[2017-11-09 08:31] VITALS: BP 120/70; PULSE 70; O2SAT 97
== END 2017-11-09 08:31 | disposition home or self-care (01) ==
LOC: ED 06:18
DX: K80.50 Calculus of bile duct without cholangitis or cholecystitis without obstruction (principal)
CPT/HCPCS: 36000; 36415; 80076; 81002; 82150; 83605; 83690; 84703; 85025; 96360; 96372; 96375; 99284; J1170; J1885; J2405; J2550

== ENCOUNTER 2018-06-04 20:50 | Emergency (ER) | payer OTHER ==
[2018-06-04 21:12] VITALS: O2SAT 97
[2018-06-04 21:19] LABS: BASOPHIL % 0.4 % (0.0-0.4); Basophil (Absolute #) 0.02 (0-0.4); Eosinophil % 1.7 % (0.00-5.0); Eosinophil (Absolute #) 0.08 (0-0.5); Granulocyte Absolute (ANC) 2.51 (1.4-6.9); Granulocytes % 52.2 % (36.0-66.0); Hematocrit 36.5 % (35-47); Hemoglobin 12.7 gm/dl (12.0-16.0); Lymphocyte (Absolute #) 1.91 (1.0-4.6); Lymphocytes % 39.7 % (24.0-44.0); Mean Corpuscular Hgb Concent. 34.8 g/dl (32-36); Mean Platelet Volume 10.3 fl (6-9.5); Monocyte (Absolute #) 0.29 (0.0-1.3); Platelet Count 226 K/mm3 (150-450); Red Blood Count 4.01 M/mm3 (4.1-5.4); Red Cell Distribution Width 12.5 % (11.5-14.0); White Blood Count 4.8 K/mm3 (4.0-10.5)
[2018-06-04] MEDS: BABY ASPIRIN 81 MG CHEW PO ONE (21:19)
[2018-06-04 21:21] LABS: Mean Corpuscular Hemoglobin 31.6 pg (26-32)
[2018-06-04 21:34] LABS: INR 1.08 (0.8-3.0)
[2018-06-04 21:39] LABS: ALBUMIN 4.6 g/dL (3.5-5.0); ALKALINE PHOSPHATASE 49 U/L (38-126); ANION GAP 15.2 MEQ/L (5-15); BLOOD UREA NITROGEN 12 mg/dL (7-17); CHLORIDE 105 mmol/L (98-107); Calcium 9.5 mg/dL (8.4-10.2); Carbon Dioxide 25 mmol/L (22-30); Creatinine 1 0.93 mg/dL (0.52-1.04); Glucose 117 mg/dL (74-106); Potassium 3.7 mmol/L (3.5-5.1); SGOT/AST 27 U/L (14-36); SGPT/ALT 33 U/L (0-35); SODIUM 141 mmol/L (137-145); Total Protein 7.9 g/dL (6.3-8.2)
[2018-06-04] MEDS ORDERED: BABY ASPIRIN 81 MG CHEW ONE (21:41)
[2018-06-04] MEDS: MORPHINE SULFATE 2 MG INJ IV ONE (21:45)
--- NOTE | 2018-06-04 22:20 | ERPHSYRPT ---
- History of Present Illness Time Seen by Provider: 06/04/18 21:00 Historian: patient, family Exam Limitations: no limitations Patient Subjective Stated Complaint: sharp stabbing pains to the left of the sternum Triage Nursing Assessment: pt c/o pain in left side of chest, states that it is a stabbing pain, hx of narrowing valves as an and has a "spring" in it that closed it, just diagnosed with 2 leaky valves, reports dizzines, no edema, doesn't appear to be in any distress Physician History: 22 Y/O WHITE FEMALE PRESENTS WITH LEFT SIDE CP. PRESENT TODAY. PT HAS H/O OF 2 "LEAKY VALVES". PT HAS A [employer] PET. PT ALSO WONDERS IF SHE MIGHT HAVE GERD. NO SOA. DENIES ABD PAIN. PT MAY BE AND WAS MILDLY DIZZY EARLIER TODAY. Timing/Duration: today Activities at Onset: none Quality: stabbing Location: other (LEFT OF STERNUM) Chest Pain Radiation: no radiation Severity of Pain-Max: mild Severity of Pain-Current: mild Modifying Factors: Improves With: nothing (DID NOT TRY ANYTHING) Associated Symptoms: heartburn, No nausea, No vomiting, No abdominal pain, No shortness of breath, No cough, No hurts to breathe Prior Chest Pain/Cardiac Workup: echocardiography Nitro Today/Relief: no nitro taken today Aspirin Treatment Today: no aspirin today Allergies/Adverse Reactions: carbinoxamine [From Pediox] Allergy (Verified 11/07/17 16:59) chlorpheniramine [From Pediox] Allergy (Verified 11/07/17 16:59) pseudoephedrine [From Pediox] Allergy (Verified 06/04/18 21:12) Home Medications: Levothyroxine Sodium 112 Mcg [Synthroid 112 Mcg] 100 mcg PO DAILY 08/26/17 [History] Cholecalciferol (Vitamin D3) [Vitamin D] 1,000 unit PO DAILY 06/04/18 [ History] Labetalol HCl 200 mg PO BID 06/04/18 [History] Hx Tetanus, Diphtheria Vaccination/Date Given: Yes Hx Influenza Vaccination/Date Given: Yes Hx Pneumococcal Vaccination/Date Given: No - Review of Systems Constitutional: No Symptoms Eyes: No Symptoms Ears, Nose, & Throat: No Symptoms Respiratory: No Symptoms, No Cough, No Dyspnea, No Dyspnea on Exertion ([place]), No Stridor, No Wheezing Cardiac: Chest Pain, No Palpitations, No Syncope Abdominal/Gastrointestinal: No Symptoms, No Abdominal Pain, No Nausea, No Vomiting Genitourinary Symptoms: No Symptoms Musculoskeletal: No Symptoms Skin: No Symptoms Neurological: No Symptoms Psychological: No Symptoms Endocrine: No Symptoms Hematologic/Lymphatic: No Symptoms Immunological/Allergic: No Symptoms All Other Systems: Reviewed and Negative - Past Medical History Pertinent Past Medical History: Yes Neurological History: No Pertinent History ENT History: No Pertinent History Cardiac History: Other (PT HAS 2 HEART VALVES THAT ARE LEAKING) Respiratory History: No Pertinent History Endocrine Medical History: No Pertinent History Musculoskeletal History: No Pertinent History GI Medical History: No Pertinent History History: No Pertinent History Psycho-Social History: No Pertinent History Female Reproductive Disorders: No Pertinent History Other Medical History: narrowing of heart valve, 2 leaky valves - Past Surgical History Past Surgical History: Yes Neuro Surgical History: No Pertinent History Cardiac: No Pertinent History Respiratory: No Pertinent History Gastrointestinal: No Pertinent History Genitourinary: No Pertinent History Musculoskeletal: No Pertinent History Female Surgical History: Section Other Surgical History: heart surgery as a child. tubes as a child - Social History Smoking Status: Never smoker Exposure to second hand smoke: No Drug Use: none Patient Lives Alone: No - Female History Hx Last Menstrual Period: 05/10/2018 Hx Now: No - Nursing Vital Signs Nursing Vital Signs: Initial Vital Signs Temperature 98.0 F 06/04/18 21:02 Pulse Rate 57 L 06/04/18 21:02 Blood Pressure 123/43 06/04/18 21:02 O2 Sat by Pulse Oximetry 97 06/04/18 21:02 Pain Scale Pain Intensity 6 - Physical Exam General Appearance: no apparent distress, alert Eye Exam: PERRL/EOMI, eyes nml inspection Ears, Nose, Throat Exam: normal ENT inspection Neck Exam: normal inspection, non-tender, supple, full range of motion Respiratory Exam: normal breath sounds, chest tenderness, lungs clear, airway intact, No respiratory distress, No diminished breath sounds, No accessory muscle use, No wheezing, No stridor Cardiovascular Exam: regular rate/rhythm, normal heart sounds, normal peripheral pulses Gastrointestinal/Abdomen Exam: soft, normal bowel sounds, No tenderness, No guarding, No rebound Pelvic Exam: not done Rectal Exam: deferred Back Exam: normal inspection Extremity Exam: normal inspection, normal range of motion Neurologic Exam: alert, oriented x 3, cooperative, development director II-XII nml as tested, normal mood/affect Skin Exam: normal color, warm, dry Lymphatic Exam: No adenopathy SpO2 Interpretation: normal SpO2: 97 Oxygen Delivery: Room Air - Course Nursing assessment & vital signs reviewed: Yes EKG Interpreted by Me: RATE, Sinus Rhythm, NORMAL AXIS, NORMAL INTERVALS, NORMAL QRS Ordered Tests: Active Orders 24 hr Category Date Time Status Material Man STAT Care 06/04/18 21:00 Active EKG-ER Only STAT Care 06/04/18 20:57 Active IV Insertion STAT Care 06/04/18 20:57 Active CHEST 1 VIEW (PORTABLE) Stat Exams 06/04/18 20:58 Taken CBC W DIFF Stat Lab 06/04/18 21:00 Completed CMP Stat Lab 06/04/18 21:00 Completed D-DIMER QUANTITATION Stat Lab 06/04/18 21:00 Completed HCG,QUALITATIVE URINE Stat Lab 06/04/18 22:45 Completed PROTIME WITH INR Stat Lab 06/04/18 21:00 Completed TROPONIN Q3H Lab 06/04/18 21:00 Completed TROPONIN Q3H Lab 06/05/18 00:00 Ordered TROPONIN Q3H Lab 06/05/18 03:00 Ordered TROPONIN Q3H Lab 06/05/18 06:00 Ordered TROPONIN Q3H Lab 06/05/18 09:00 Ordered Medication Summary Discontinued Medications Generic Name Dose Route Start Last Admin Trade Name Freq PRN Reason Stop Dose Admin Al Hydrox/Mg Hydrox/Simethicone Confirm 06/04/18 22:31 Maalox Es 30 Ml Unit Dose Administered 06/04/18 22:32 Dose 30 ml .ROUTE .STK-MED ONE Aspirin 324 mg 06/04/18 20:57 06/04/18 21:19 Baby Aspirin 81 Mg Chew PO 06/04/18 20:58 324 mg STAT ONE Administration Aspirin Confirm 06/04/18 21:41 Baby Aspirin 81 Mg Chew Administered 06/04/18 21:42 Dose 324 mg .ROUTE .STK-MED ONE Lidocaine HCl Confirm 06/04/18 22:30 Xylocaine Hcl Viscous * Administered 06/04/18 22:31 Dose 15 ml .ROUTE .STK-MED ONE Magnesium Hydroxide 45 ml 06/04/18 22:02 06/04/18 22:31 Gi Cocktail 45 Ml (Maalox/Lidocaine) PO 06/04/18 22:03 45 ml STAT ONE Administration Morphine Sulfate 2 mg 06/04/18 21:41 06/04/18 21:45 Morphine Sulfate 2 Mg Inj IV 06/04/18 21:42 Not Given STAT ONE Lab/Rad Data: Laboratory Result Diagrams 06/04/18 21:00 06/04/18 21:00 Laboratory Results 06/04/18 06/04/18 06/04/18 Range/Units 22:45 21:00 21:00 WBC (4.0-10.5) K/mm3 RBC (4.1-5.4) M/mm3 Hgb (12.0-16.0) gm/dl Hct (35-47) % MCV (78-100) fl MCH (26-32) pg MCHC (32-36) g/dl RDW (11.5-14.0) % Plt Count (150-450) K/mm3 MPV (6-9.5) fl Gran % (36.0-66.0) % Eos # (Auto) (0-0.5) Absolute Lymphs (auto) (1.0-4.6) Absolute Monos (auto) (0.0-1.3) Lymphocytes % (24.0-44.0) % Monocytes % (0.0-12.0) % Eosinophils % (0.00-5.0) % Basophils % (0.0-0.4) % Absolute Granulocytes (1.4-6.9) Basophils # (0-0.4) PT 12.6 H (9.95-12.35) SECONDS INR 1.08 (0.8-3.0) D-Dimer 529 H* (215-500) ng/mL Sodium (137-145) mmol/L Potassium (3.5-5.1) mmol/L Chloride (98-107) mmol/L Carbon Dioxide (22-30) mmol/L Anion Gap (5-15) MEQ/L BUN (7-17) mg/dL Creatinine (0.52-1.04) mg/dL Estimated GFR ML/MIN Glucose (74-106) mg/dL Calcium (8.4-10.2) mg/dL Total Bilirubin (0.2-1.3) mg/dL AST (14-36) U/L ALT (0-35) U/L Alkaline Phosphatase (38-126) U/L Troponin I < 0.012 (0.000-0.034) ng/mL Serum Total Protein (6.3-8.2) g/dL Albumin (3.5-5.0) g/dL Urine HCG, Qual NEGATIVE (Negative) 06/04/18 06/04/18 Range/Units 21:00 21:00 WBC 4.8 (4.0-10.5) K/mm3 RBC 4.01 L (4.1-5.4) M/mm3 Hgb 12.7 (12.0-16.0) gm/dl Hct 36.5 (35-47) % MCV 91.0 (78-100) fl MCH 31.6 (26-32) pg MCHC 34.8 (32-36) g/dl RDW 12.5 (11.5-14.0) % Plt Count 226 (150-450) K/mm3 MPV 10.3 H (6-9.5) fl Gran % 52.2 (36.0-66.0) % Eos # (Auto) 0.08 (0-0.5) Absolute Lymphs (auto) 1.91 (1.0-4.6) Absolute Monos (auto) 0.29 (0.0-1.3) Lymphocytes % 39.7 (24.0-44.0) % Monocytes % 6.0 (0.0-12.0) % Eosinophils % 1.7 (0.00-5.0) % Basophils % 0.4 (0.0-0.4) % Absolute Granulocytes 2.51 (1.4-6.9) Basophils # 0.02 (0-0.4) PT (9.95-12.35) SECONDS INR (0.8-3.0) D-Dimer (215-500) ng/mL Sodium 141 (137-145) mmol/L Potassium 3.7 (3.5-5.1) mmol/L Chloride 105 (98-107) mmol/L Carbon Dioxide 25 (22-30) mmol/L Anion Gap 15.2 H (5-15) MEQ/L BUN 12 (7-17) mg/dL Creatinine 0.93 (0.52-1.04) mg/dL Estimated GFR > 60.0 ML/MIN Glucose 117 H (74-106) mg/dL Calcium 9.5 (8.4-10.2) mg/dL Total Bilirubin 0.50 (0.2-1.3) mg/dL AST 27 (14-36) U/L ALT 33 (0-35) U/L Alkaline Phosphatase 49 (38-126) U/L Troponin I (0.000-0.034) ng/mL Serum Total Protein 7.9 (6.3-8.2) g/dL Albumin 4.6 (3.5-5.0) g/dL Urine HCG, Qual (Negative) - Progress Progress: improved, re-examined Air Movement: good Progress Note: 06/04/18 22:23 PT REFUSES MORPHINE. 06/04/18 23:40 PT STATES NO CP SINCE THE GI COCKTAIL Blood Culture(s) Obtained: No Antibiotics given: No Counseled pt/family regarding: lab results, diagnosis, need for follow-up, rad results - Departure Time of Disposition: 23:38 Departure Disposition: Home Clinical Impression: Chest pain Condition: Good Critical Care Time: No Referrals: EMILY MARTINEZ [Primary Care Provider] - Additional Instructions: AVOID FATTY, GREASY, SPICY FOODS. FOLLOW UP WITH [employer] AND PRIMARY DOCTOR FOR FURTHER MANAGEMENT Prescriptions: Ranitidine HCl [Zantac] 150 mg PO BID #10 tablet
[2018-06-04] MEDS ORDERED: XYLOCAINE HCl Viscous ONE (22:30)
[2018-06-04] MEDS: GI COCKTAIL 45 ML (Maalox/Lidocaine) PO ONE (22:31)
[2018-06-04] MEDS ORDERED: MAALOX ES 30 ML UNIT DOSE ONE (22:31)
[2018-06-04 23:22] VITALS: BP 128/63; PULSE 55
--- NOTE | 2018-06-05 08:45 | XRAY ---
Indication: Chest pain. Comparison: None Portable chest demonstrates normal heart, lungs, and bony thorax.
== END 2018-06-04 23:59 | disposition home or self-care (01) ==
LOC: ED 20:50
DX: R07.9 Chest pain, unspecified (principal); Z79.899 Other long term (current) drug therapy
CPT/HCPCS: 36415; 71045; 80053; 84484; 84703; 85025; 85379; 85610; 93005; 93041; 99284; A9270-GY

== ENCOUNTER 2018-12-07 02:36 | Emergency (ER) | payer OTHER ==
[2018-12-07] MEDS ORDERED: Zofran 4 MG/2 ML VIAL IV ONE (02:59)
[2018-12-07] MEDS ORDERED: Sodium Chloride 0.9% 1000 ML 1,000 ML IV STA ×2 (02:59→04:47)
[2018-12-07] MEDS ORDERED: Pepcid 20 MG VIAL IV ONE ×3 (03:02→03:12)
[2018-12-07 03:08] LABS: BASOPHIL % 0.1 % (0.0-0.4); Basophil (Absolute #) 0.01 (0-0.4); Eosinophil % 0.1 % (0.00-5.0); Eosinophil (Absolute #) 0.01 (0-0.5); Granulocytes % 88.4 % (36.0-66.0); Hematocrit 39.9 % (35-47); Hemoglobin 13.8 gm/dl (12.0-16.0); Lymphocyte (Absolute #) 0.53 (1.0-4.6); Lymphocytes % 7.3 % (24.0-44.0); Mean Cell Volume 93.2 fl (78-100); Mean Corpuscular Hemoglobin 32.2 pg (26-32); Mean Corpuscular Hgb Concent. 34.6 g/dl (32-36); Mean Platelet Volume 10.1 fl (6-9.5); Monocytes % 4.1 % (0.0-12.0); Platelet Count 225 K/mm3 (150-450); Red Blood Count 4.28 M/mm3 (4.1-5.4); Red Cell Distribution Width 12.8 % (11.5-14.0); White Blood Count 7.3 K/mm3 (4.0-10.5)
--- NOTE | 2018-12-07 03:09 | ERPHSYRPT ---
- History of Present Illness Time Seen by Provider: 12/07/18 02:50 Source: patient Exam Limitations: clinical condition Patient Subjective Stated Complaint: pt states she has been vomiting and having diarrhea since yesterday morning and has been unable to keep anything down Triage Nursing Assessment: pt alert and oriented, answers questions approp. pt ambulatory with steady gait noted. respirations nonlabored with lungs cta. abd soft and nontender to light palpation. bowel sounds present, hypo x4 quads. Physician History: PATIENT WITH A HISTORY OF DEPRESSION, AND HYPOTHYROIDISM COMPLAINS OF FREQUENT EPISODES OF EMESIS AND WATERY DIARRHEA, ASSOCIATED DRY HEAVES, DIZZINESS UPON STANDING. DENIES FEVER, URINARY SYMPTOMS. Timing/Duration: yesterday Severity: moderate Associated Symptoms: nausea, vomiting, other (DIARRHEA) Allergies/Adverse Reactions: carbinoxamine [From Pediox] Allergy (Verified 12/07/18 02:49) chlorpheniramine [From Pediox] Allergy (Verified 12/07/18 02:49) pseudoephedrine [From Pediox] Allergy (Verified 12/07/18 02:49) Home Medications: Levothyroxine Sodium 112 Mcg [Synthroid 112 Mcg] 125 mcg PO DAILY 08/26/17 [History] Cholecalciferol (Vitamin D3) [Vitamin D] 1,000 unit PO DAILY 06/04/18 [ History] Labetalol HCl 200 mg PO BID 06/04/18 [History] Citalopram Hydrobromide [Celexa] 10 mg PO DAILY 12/07/18 [History] Hx Tetanus, Diphtheria Vaccination/Date Given: Yes Hx Influenza Vaccination/Date Given: Yes Hx Pneumococcal Vaccination/Date Given: No Immunizations Up to Date: Yes - Review of Systems Constitutional: No Fever, No Chills Eyes: No Symptoms Ears, Nose, & Throat: No Symptoms Respiratory: No Symptoms, No Cough, No Dyspnea Cardiac: No Symptoms, No Chest Pain, No Edema, No Syncope Abdominal/Gastrointestinal: Nausea, Vomiting, Diarrhea, No Abdominal Pain Genitourinary Symptoms: No Symptoms, No Dysuria Musculoskeletal: No Symptoms, No Back Pain, No Neck Pain Skin: No Rash Neurological: No Dizziness, No Focal Weakness, No Sensory Changes Psychological: No Symptoms Endocrine: No Symptoms All Other Systems: Reviewed and Negative - Past Medical History Pertinent Past Medical History: Yes Neurological History: No Pertinent History ENT History: No Pertinent History Cardiac History: Hypertension, Other Respiratory History: No Pertinent History Endocrine Medical History: No Pertinent History Musculoskeletal History: No Pertinent History GI Medical History: GERD History: No Pertinent History Psycho-Social History: Anxiety Female Reproductive Disorders: No Pertinent History Other Medical History: narrowing of heart valve, 2 leaky valves. thyroid - Past Surgical History Past Surgical History: Yes Neuro Surgical History: No Pertinent History Cardiac: No Pertinent History Respiratory: No Pertinent History Gastrointestinal: Cholecystectomy Genitourinary: No Pertinent History Musculoskeletal: No Pertinent History Female Surgical History: Section Other Surgical History: heart surgery as a child. tubes as a child - Social History Smoking Status: Never smoker Exposure to second hand smoke: No Drug Use: none Patient Lives Alone: No - Female History Hx Last Menstrual Period: 2 weeks Hx Now: No - Nursing Vital Signs Nursing Vital Signs: Initial Vital Signs Pulse Rate 87 12/07/18 03:36 Respiratory Rate 18 12/07/18 03:36 Blood Pressure 131/69 12/07/18 03:36 O2 Sat by Pulse Oximetry 98 12/07/18 03:36 Pain Scale Pain Intensity 2 - Physical Exam General Appearance: no apparent distress, alert Eye Exam: PERRL/EOMI, eyes nml inspection Ears, Nose, Throat Exam: normal ENT inspection, TMs normal, pharynx normal, moist mucous membranes Neck Exam: normal inspection, non-tender, supple, full range of motion Respiratory Exam: normal breath sounds, lungs clear, No respiratory distress Cardiovascular Exam: regular rate/rhythm, normal heart sounds, normal peripheral pulses Gastrointestinal/Abdomen Exam: soft, normal bowel sounds, other (NONTENDER), No tenderness, No mass Back Exam: normal inspection, normal range of motion, No CVA tenderness, No vertebral tenderness Extremity Exam: normal inspection, normal range of motion, pelvis stable Neurologic Exam: alert, oriented x 3, cooperative, normal mood/affect, nml cerebellar function, nml station & gait, sensation nml, No motor deficits Skin Exam: normal color, warm, dry, No rash Lymphatic Exam: No adenopathy Ordered Tests: Active Orders 24 hr Category Date Time Status AMYLASE Stat Lab 12/07/18 03:05 Completed CBC W DIFF Stat Lab 12/07/18 03:05 Completed CMP Stat Lab 12/07/18 03:05 Completed HCG,QUALITATIVE URINE Stat Lab 12/07/18 04:18 Completed LIPASE Stat Lab 12/07/18 03:05 Completed Medication Summary Discontinued Medications Generic Name Dose Route Start Last Admin Trade Name Kenji PRN Reason Stop Dose Admin Famotidine 20 mg 12/07/18 03:02 12/07/18 03:22 Pepcid 20 Mg Vial IV 12/07/18 03:03 20 mg STAT ONE Administration Famotidine 20 mg 12/07/18 03:03 12/07/18 03:39 Pepcid 20 Mg Vial IV 12/07/18 03:04 Not Given STAT ONE Famotidine Confirm 12/07/18 03:12 Pepcid 20 Mg Vial Administered 12/07/18 03:13 Dose 20 mg IV .STK-MED ONE Sodium Chloride 1,000 mls @ 999 mls/hr 12/07/18 02:59 12/07/18 04:58 Sodium Chloride 0.9% 1000 Ml IV 12/07/18 03:59 Infused .Q1H1M STA Infusion Sodium Chloride Confirm 12/07/18 03:12 Sodium Chloride 0.9% 1000 Ml Administered 12/07/18 03:13 Dose 1,000 mls @ ud .ROUTE .STK-MED ONE Sodium Chloride 1,000 mls @ 999 mls/hr 12/07/18 04:47 12/07/18 04:56 Sodium Chloride 0.9% 1000 Ml IV 12/07/18 05:47 999 mls/hr .Q1H1M STA Administration Sodium Chloride Confirm 12/07/18 04:53 Sodium Chloride 0.9% 1000 Ml Administered 12/07/18 04:54 Dose 1,000 mls @ ud .ROUTE .STK-MED ONE Ondansetron HCl 4 mg 12/07/18 02:59 12/07/18 03:22 Zofran 4 Mg/2 Ml Vial IV 12/07/18 03:00 4 mg STAT ONE Administration Ondansetron HCl Confirm 12/07/18 03:12 Zofran 4 Mg/2 Ml Vial Administered 12/07/18 03:13 Dose 4 mg .ROUTE .STK-MED ONE Lab/Rad Data: Laboratory Result Diagrams 12/07/18 03:05 12/07/18 03:05 Laboratory Results 12/07/18 12/07/18 12/07/18 Range/Units 04:18 03:05 03:05 WBC 7.3 (4.0-10.5) K/mm3 RBC 4.28 (4.1-5.4) M/mm3 Hgb 13.8 (12.0-16.0) gm/dl Hct 39.9 (35-47) % MCV 93.2 (78-100) fl MCH 32.2 H (26-32) pg MCHC 34.6 (32-36) g/dl RDW 12.8 (11.5-14.0) % Plt Count 225 (150-450) K/mm3 MPV 10.1 H (6-9.5) fl Gran % 88.4 H (36.0-66.0) % Eos # (Auto) 0.01 (0-0.5) Absolute Lymphs (auto) 0.53 L (1.0-4.6) Absolute Monos (auto) 0.30 (0.0-1.3) Lymphocytes % 7.3 L (24.0-44.0) % Monocytes % 4.1 (0.0-12.0) % Eosinophils % 0.1 (0.00-5.0) % Basophils % 0.1 (0.0-0.4) % Absolute Granulocytes 6.40 (1.4-6.9) Basophils # 0.01 (0-0.4) Sodium 141 (137-145) mmol/L Potassium 4.0 (3.5-5.1) mmol/L Chloride 102 (98-107) mmol/L Carbon Dioxide 25 (22-30) mmol/L Anion Gap 18.1 H (5-15) MEQ/L BUN 18 H (7-17) mg/dL Creatinine 1.02 (0.52-1.04) mg/dL Estimated GFR > 60.0 ML/MIN Glucose 127 H (74-106) mg/dL Calcium 9.4 (8.4-10.2) mg/dL Total Bilirubin 1.20 (0.2-1.3) mg/dL AST 19 (14-36) U/L ALT 19 (0-35) U/L Alkaline Phosphatase 48 (38-126) U/L Serum Total Protein 8.5 H (6.3-8.2) g/dL Albumin 4.9 (3.5-5.0) g/dL Amylase 61 (30-110) U/L Lipase 42 (23-300) U/L Urine HCG, Qual NEGATIVE (Negative) - Progress Progress Note: 12/07/18 03:08 ADMINISTERED IV NORMAL SALINE 1 LITER/HR X 2, ZOFRAN 4MG, PEPCID 20MG IV 12/07/18 06:06, ALL LAB TEST REVIEWED AND ARE NORMAL. PATIENT HAD NO EPISODES OF EMESIS OR DIARRHEA IN EMERGENCY ROOM Counseled pt/family regarding: lab results, diagnosis, need for follow-up - Departure Time of Disposition: 06:16 Departure Disposition: Home Clinical Impression: ACUTE EMESIS/DIARRHEA Condition: Stable Critical Care Time: No Referrals: EMILY MARTINEZ [Primary Care Provider] - Additional Instructions: BEGAN A CLEAR LIQUID DIET FOR 24 HOURS THEN ADVANCE DIET TOLERATED. ZOFRAN 4MG EVERY 6 HOURS NEEDED FOR NAUSEA. CONSULT YOUR PRIMARY CARE PROVIDER FOR FOLLOWUP IN 1 WEEK. Prescriptions: Ondansetron ODT 4 MG [Zofran Odt 4 mg] 4 mg PO Q6H PRN PRN #10 tab.rapdis PRN Reason: Nausea
[2018-12-07] MEDS ORDERED: Zofran 4 MG/2 ML VIAL ONE (03:12)
[2018-12-07] MEDS ORDERED: Sodium Chloride 0.9% 1000 ML 1,000 ML ONE ×2 (03:12→04:53)
[2018-12-07 03:21] LABS: ALBUMIN 4.9 g/dL (3.5-5.0); ALKALINE PHOSPHATASE 48 U/L (38-126); AMYLASE 61 U/L (30-110); ANION GAP 18.1 MEQ/L (5-15); BLOOD UREA NITROGEN 18 mg/dL (7-17); CHLORIDE 102 mmol/L (98-107); Calcium 9.4 mg/dL (8.4-10.2); Carbon Dioxide 25 mmol/L (22-30); Creatinine 1 1.02 mg/dL (0.52-1.04); Glucose 127 mg/dL (74-106); LIPASE 42 U/L (23-300); SGOT/AST 19 U/L (14-36); SGPT/ALT 19 U/L (0-35); SODIUM 141 mmol/L (137-145); Total Protein 8.5 g/dL (6.3-8.2)
[2018-12-07 06:22] VITALS: BP 126/69; PULSE 78; O2SAT 99
== END 2018-12-07 06:30 | disposition home or self-care (01) ==
LOC: ED 02:36
DX: R11.10 Vomiting, unspecified (principal); R19.7 Diarrhea, unspecified; I10 Essential (primary) hypertension; K21.9 Gastro-esophageal reflux disease without esophagitis; F41.9 Anxiety disorder, unspecified; F32.9 Major depressive disorder, single episode, unspecified; E03.9 Hypothyroidism, unspecified
CPT/HCPCS: 36415; 80053; 82150; 83690; 84703; 85025; 96360; 96361; 96374; 96375; 99284; J2405

== ENCOUNTER 2018-12-28 15:56 | Emergency (ER) | payer OTHER ==
--- NOTE | 2018-12-28 16:48 | ERPHSYRPT ---
- History of Present Illness Time Seen by Provider: 12/28/18 16:37 Historian: patient Exam Limitations: no limitations Patient Subjective Stated Complaint: "I have been having abd pain at left side of my belly button since early this morning". I am 5 1/2 wks and have an ultrasound scheduled on January [address] Moctezuma to see if I am really ". Triage Nursing Assessment: AAox3, color good, resp easy, lungs clear bilaterally , abd soft, bowel sounds heard, walked in, Last BM today and states BM's ok. Denies urinary problems. Physician History: The patient is a 23-year-old female with her complaining of left- sided abdominal pain that began this morning. Her last menstrual period was early November. She states she is at least one week overdue. She thinks she might be . She took a home test over week ago that was faintly positive. She saw the nurse in Dr. Moctezuma office (OB doctor) and had a test that was negative. She is scheduled to have an ultrasound done on January 15. She denies nausea or vomiting. She denies diarrhea. She denies shortness of breath. She denies urinary problems. Her past medical history is significant for delivery of healthy brought in by C- section and cholecystectomy. Timing/Duration: today Activities at Onset: none Quality: sharpness Abdominal Pain Onset Location: LLQ Pain Radiation: no radiation Severity of Pain-Max: mild Severity of Pain-Current: mild Modifying Factors: Improves With: nothing Associated Symptoms: denies symptoms, No diarrhea, No nausea, No vomiting Previous symptoms: no prior history Allergies/Adverse Reactions: carbinoxamine [From Pediox] Allergy (Verified 12/07/18 02:49) chlorpheniramine [From Pediox] Allergy (Verified 12/07/18 02:49) pseudoephedrine [From Pediox] Allergy (Verified 12/07/18 02:49) Home Medications: Labetalol HCl 200 mg PO BID 06/04/18 [History] Citalopram Hydrobromide [Celexa] 10 mg PO DAILY 12/07/18 [History] Levothyroxine Sodium [Tirosint] 150 mcg PO DAILY 12/28/18 [History] Hx Tetanus, Diphtheria Vaccination/Date Given: Yes Hx Influenza Vaccination/Date Given: Yes Hx Pneumococcal Vaccination/Date Given: No Immunizations Up to Date: Yes - Review of Systems Constitutional: No Symptoms Eyes: No Symptoms Ears, Nose, & Throat: No Symptoms Respiratory: No Cough, No Dyspnea Cardiac: No Chest Pain, No Edema, No Syncope Abdominal/Gastrointestinal: Abdominal Pain, No Nausea, No Vomiting, No Diarrhea Genitourinary Symptoms: No Dysuria Musculoskeletal: No Back Pain, No Neck Pain Skin: No Rash Neurological: No Dizziness, No Focal Weakness, No Sensory Changes Psychological: No Symptoms Endocrine: No Symptoms Hematologic/Lymphatic: No Symptoms Immunological/Allergic: No Symptoms All Other Systems: Reviewed and Negative - Past Medical History Pertinent Past Medical History: Yes Neurological History: No Pertinent History ENT History: No Pertinent History Cardiac History: Hypertension, Other Respiratory History: No Pertinent History Endocrine Medical History: No Pertinent History Musculoskeletal History: No Pertinent History GI Medical History: GERD History: No Pertinent History Psycho-Social History: Anxiety Female Reproductive Disorders: No Pertinent History Other Medical History: narrowing of heart valve, 2 leaky valves. thyroid - Past Surgical History Past Surgical History: Yes Neuro Surgical History: No Pertinent History Cardiac: No Pertinent History Respiratory: No Pertinent History Gastrointestinal: Cholecystectomy Genitourinary: No Pertinent History Musculoskeletal: No Pertinent History Female Surgical History: Section Other Surgical History: heart surgery as a child. tubes as a child - Social History Smoking Status: Never smoker Exposure to second hand smoke: No Drug Use: none Patient Lives Alone: No - Female History Hx Last Menstrual Period: Nov 20, 2018 Hx Now: Yes (5 1/2 wks ) - Nursing Vital Signs Nursing Vital Signs: Initial Vital Signs Temperature 98.5 F 12/28/18 16:04 Pulse Rate 69 12/28/18 16:04 Respiratory Rate 20 12/28/18 16:04 Blood Pressure 129/73 12/28/18 16:04 O2 Sat by Pulse Oximetry 99 12/28/18 16:04 Pain Scale Pain Intensity 6 - Physical Exam General Appearance: no apparent distress, alert, obese Eye Exam: PERRL/EOMI, eyes nml inspection Ears, Nose, Throat Exam: normal ENT inspection, pharynx normal, moist mucous membranes Neck Exam: normal inspection, non-tender, supple, full range of motion Respiratory Exam: normal breath sounds, lungs clear, No respiratory distress Cardiovascular Exam: regular rate/rhythm, normal heart sounds Gastrointestinal/Abdomen Exam: tenderness (left umbilical) Pelvic Exam: not done Rectal Exam: not done Back Exam: normal inspection, normal range of motion, No CVA tenderness, No vertebral tenderness Extremity Exam: normal inspection, normal range of motion, pelvis stable Neurologic Exam: alert, oriented x 3, cooperative, normal mood/affect, nml cerebellar function, sensation nml, No motor deficits Skin Exam: normal color, warm, dry SpO2 Interpretation: normal SpO2: 99 O2 Delivery: Room Air Ordered Tests: Active Orders 24 hr Category Date Time Status Clean Catch Urine Specimen STAT Care 12/28/18 16:58 Active IV Insertion STAT Care 12/28/18 16:58 Active KUB Stat Exams 12/28/18 17:25 Stop Req AMYLASE Stat Lab 12/28/18 16:15 Completed CBC W DIFF Stat Lab 12/28/18 16:15 Completed CMP Stat Lab 12/28/18 16:15 Completed HCG QUALITATIVE,SERUM Stat Lab 12/28/18 16:15 Completed LIPASE Stat Lab 12/28/18 16:15 Completed Lactic Acid Stat Lab 12/28/18 16:58 Completed UA W/RFX UR CULTURE Stat Lab 12/28/18 17:04 Completed Lab/Rad Data: Laboratory Result Diagrams 12/28/18 16:15 12/28/18 16:15 Laboratory Results 12/28/18 12/28/18 12/28/18 Range/Units 17:04 16:58 16:15 WBC (4.0-10.5) K/mm3 RBC (4.1-5.4) M/mm3 Hgb (12.0-16.0) gm/dl Hct (35-47) % MCV (78-100) fl MCH (26-32) pg MCHC (32-36) g/dl RDW (11.5-14.0) % Plt Count (150-450) K/mm3 MPV (6-9.5) fl Gran % (36.0-66.0) % Eos # (Auto) (0-0.5) Absolute Lymphs (auto) (1.0-4.6) Absolute Monos (auto) (0.0-1.3) Lymphocytes % (24.0-44.0) % Monocytes % (0.0-12.0) % Eosinophils % (0.00-5.0) % Basophils % (0.0-0.4) % Absolute Granulocytes (1.4-6.9) Basophils # (0-0.4) Sodium (137-145) mmol/L Potassium (3.5-5.1) mmol/L Chloride (98-107) mmol/L Carbon Dioxide (22-30) mmol/L Anion Gap (5-15) MEQ/L BUN (7-17) mg/dL Creatinine (0.52-1.04) mg/dL Estimated GFR ML/MIN Glucose (74-106) mg/dL Lactic Acid 1.2 (0.4-2.0) Calcium (8.4-10.2) mg/dL Total Bilirubin (0.2-1.3) mg/dL AST (14-36) U/L ALT (0-35) U/L Alkaline Phosphatase (38-126) U/L Serum Total Protein (6.3-8.2) g/dL Albumin (3.5-5.0) g/dL Amylase (30-110) U/L Lipase (23-300) U/L Serum , Qual NEGATIVE (Negative) Urine Color YELLOW (YELLOW) Urine Appearance CLEAR (CLEAR) Urine pH 5.0 (5-6) Ur Specific [place] 1.023 (1.005-1.025) Urine Protein NEGATIVE (Negative) Urine Ketones TRACE (NEGATIVE) Urine Blood NEGATIVE (0-5) Codey/ul Urine Nitrite NEGATIVE (NEGATIVE) Urine Bilirubin NEGATIVE (NEGATIVE) Urine Urobilinogen 2 (0-1) mg/dL Ur Leukocyte Esterase SMALL (NEGATIVE) Urine WBC (Auto) 0-2 (0-5) /HPF Urine RBC (Auto) NONE (0-2) /HPF U Epithel Cells (Auto) RARE (FEW) /HPF Urine Bacteria (Auto) NONE (NEGATIVE) /HPF Urine Mucus (Auto) SLIGHT (NEGATIVE) /HPF Urine Culture Reflexed NO (NO) Urine Glucose NEGATIVE (NEGATIVE) mg/dL 12/28/18 12/28/18 Range/Units 16:15 16:15 WBC 4.7 (4.0-10.5) K/mm3 RBC 3.98 L (4.1-5.4) M/mm3 Hgb 12.8 (12.0-16.0) gm/dl Hct 37.0 (35-47) % MCV 93.0 (78-100) fl MCH 32.1 H (26-32) pg MCHC 34.6 (32-36) g/dl RDW 12.5 (11.5-14.0) % Plt Count 229 (150-450) K/mm3 MPV 10.2 H (6-9.5) fl Gran % 57.8 (36.0-66.0) % Eos # (Auto) 0.07 (0-0.5) Absolute Lymphs (auto) 1.62 (1.0-4.6) Absolute Monos (auto) 0.30 (0.0-1.3) Lymphocytes % 34.2 (24.0-44.0) % Monocytes % 6.3 (0.0-12.0) % Eosinophils % 1.5 (0.00-5.0) % Basophils % 0.2 (0.0-0.4) % Absolute Granulocytes 2.74 (1.4-6.9) Basophils # 0.01 (0-0.4) Sodium 140 (137-145) mmol/L Potassium 3.9 (3.5-5.1) mmol/L Chloride 102 (98-107) mmol/L Carbon Dioxide 28 (22-30) mmol/L Anion Gap 14.5 (5-15) MEQ/L BUN 12 (7-17) mg/dL Creatinine 0.81 (0.52-1.04) mg/dL Estimated GFR > 60.0 ML/MIN Glucose 95 (74-106) mg/dL Lactic Acid (0.4-2.0) Calcium 9.4 (8.4-10.2) mg/dL Total Bilirubin 0.40 (0.2-1.3) mg/dL AST 18 (14-36) U/L ALT 14 (0-35) U/L Alkaline Phosphatase 43 (38-126) U/L Serum Total Protein 8.0 (6.3-8.2) g/dL Albumin 4.5 (3.5-5.0) g/dL Amylase 73 (30-110) U/L Lipase 93 (23-300) U/L Serum , Qual (Negative) Urine Color (YELLOW) Urine Appearance (CLEAR) Urine pH (5-6) Ur Specific [place] (1.005-1.025) Urine Protein (Negative) Urine Ketones (NEGATIVE) Urine Blood (0-5) Codey/ul Urine Nitrite (NEGATIVE) Urine Bilirubin (NEGATIVE) Urine Urobilinogen (0-1) mg/dL Ur Leukocyte Esterase (NEGATIVE) Urine WBC (Auto) (0-5) /HPF Urine RBC (Auto) (0-2) /HPF U Epithel Cells (Auto) (FEW) /HPF Urine Bacteria (Auto) (NEGATIVE) /HPF Urine Mucus (Auto) (NEGATIVE) /HPF Urine Culture Reflexed (NO) Urine Glucose (NEGATIVE) mg/dL - Progress Progress: unchanged Progress Note: 12/28/18 17:20 I discussed the laboratory findings with the patient, including the white count and a negative serum test. The patient still requested an ultrasound. I respectfully declined to perform an ultrasound because there was no medical necessity for it at this time. I explained her white count was normal, her lipase was negative, and the was. I requested that she follow-up with Dr. Moctezuma next week. Counseled pt/family regarding: lab results, diagnosis, need for follow-up, rad results - Departure Time of Disposition: 17:29 Departure Disposition: Home Clinical Impression: Abdominal pain Condition: Stable Critical Care Time: No Referrals: EMILY MARTINEZ [Primary Care Provider] - Additional Instructions: You have mild left sided abdominal pain. Your laboratory results, including the white count and the test, were negative. An ultrasound is not warranted today to check for a because of the negative test. Take Tylenol 1000 mg every 8 hours as needed. Follow-up with Dr. Moctezuma next week.
[2018-12-28 17:04] LABS: BASOPHIL % 0.2 % (0.0-0.4); Basophil (Absolute #) 0.01 (0-0.4); Eosinophil % 1.5 % (0.00-5.0); Eosinophil (Absolute #) 0.07 (0-0.5); Granulocyte Absolute (ANC) 2.74 (1.4-6.9); Granulocytes % 57.8 % (36.0-66.0); Hemoglobin 12.8 gm/dl (12.0-16.0); Lymphocyte (Absolute #) 1.62 (1.0-4.6); Lymphocytes % 34.2 % (24.0-44.0); Mean Corpuscular Hgb Concent. 34.6 g/dl (32-36); Mean Platelet Volume 10.2 fl (6-9.5); Monocytes % 6.3 % (0.0-12.0); Platelet Count 229 K/mm3 (150-450); Red Blood Count 3.98 M/mm3 (4.1-5.4); Red Cell Distribution Width 12.5 % (11.5-14.0); White Blood Count 4.7 K/mm3 (4.0-10.5)
[2018-12-28 17:09] LABS: ALBUMIN 4.5 g/dL (3.5-5.0); ALKALINE PHOSPHATASE 43 U/L (38-126); AMYLASE 73 U/L (30-110); ANION GAP 14.5 MEQ/L (5-15); BLOOD UREA NITROGEN 12 mg/dL (7-17); CHLORIDE 102 mmol/L (98-107); Calcium 9.4 mg/dL (8.4-10.2); Carbon Dioxide 28 mmol/L (22-30); Creatinine 1 0.81 mg/dL (0.52-1.04); Glucose 95 mg/dL (74-106); LIPASE 93 U/L (23-300); Potassium 3.9 mmol/L (3.5-5.1); SGOT/AST 18 U/L (14-36); SGPT/ALT 14 U/L (0-35); SODIUM 140 mmol/L (137-145)
[2018-12-28 17:10] LABS: Mean Corpuscular Hemoglobin 32.1 pg (26-32)
[2018-12-28 17:18] LABS: Appearance CLEAR (CLEAR); Bilirubin NEGATIVE (NEGATIVE); Blood NEGATIVE Ery/ul (0-5); Epithelial Cells RARE /HPF (FEW); Glucose NEGATIVE (NEGATIVE); Ketones TRACE (NEGATIVE); Leukocyte Esterase SMALL (NEGATIVE); Mucus SLIGHT /HPF (NEGATIVE); Nitrite NEGATIVE (NEGATIVE); Protein,Urine Dip NEGATIVE (Negative); Specific Gravity 1.023 (1.005-1.025); Urobilinogen 2 mg/dL (0-1); WBC 0-2 /HPF (0-5)
[2018-12-28 17:40] VITALS: BP 104/67; PULSE 67; O2SAT 97
== END 2018-12-28 17:40 | disposition home or self-care (01) ==
LOC: ED 15:56
DX: R10.32 Left lower quadrant pain (principal); K21.9 Gastro-esophageal reflux disease without esophagitis; F41.9 Anxiety disorder, unspecified
CPT/HCPCS: 36000; 36415; 80053; 81001; 81025; 82150; 83605; 83690; 85025; 99284

== ENCOUNTER 2019-01-16 19:41 | Emergency (ER) | payer OTHER ==
[2019-01-16] MEDS ORDERED: Sodium Chloride 0.9% 1000 ML 1,000 ML IV STA (20:48)
--- NOTE | 2019-01-16 20:48 | ERPHSYRPT ---
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 pt states she has onset of pain this am. pt also reports not having had menstrual cycle in over one month but negative hcg at dr office. Triage Nursing Assessment: pink/warm/dry, resp easy, a&ox4, steady gait, no distress noted at this time. Physician History: 23 y/o white female with known large ovarian cyst. pts geriatric personal care aide is observing this. pt having increased pain right lower quadrant. told to come to ED. Timing/Duration: today Activities at Onset: none Quality: pressure, sharpness, tightness Abdominal Pain Onset Location: suprapubic Pain Radiation: no radiation Severity of Pain-Max: moderate Severity of Pain-Current: moderate Modifying Factors: Improves With: nothing Associated Symptoms: No diarrhea, No nausea, No vomiting Allergies/Adverse Reactions: carbinoxamine [From Pediox] Allergy (Verified 01/16/19 20:29) chlorpheniramine [From Pediox] Allergy (Verified 01/16/19 20:29) pseudoephedrine [From Pediox] Allergy (Verified 01/16/19 20:29) Home Medications: Labetalol HCl 200 mg PO BID 06/04/18 [History] Levothyroxine Sodium [Tirosint] 150 mcg PO DAILY 12/28/18 [History] Hx Tetanus, Diphtheria Vaccination/Date Given: Yes Hx Influenza Vaccination/Date Given: Yes Hx Pneumococcal Vaccination/Date Given: No Immunizations Up to Date: Yes - Review of Systems Constitutional: No Symptoms Eyes: No Symptoms Ears, Nose, & Throat: No Symptoms Respiratory: No Symptoms Cardiac: No Symptoms Abdominal/Gastrointestinal: Abdominal Pain (suprapubic), No Nausea, No Vomiting , No Diarrhea Genitourinary Symptoms: No Symptoms, No Dysuria, No Frequency, No Hematuria Musculoskeletal: No Symptoms Skin: No Symptoms Neurological: No Symptoms Psychological: No Symptoms Endocrine: No Symptoms Hematologic/Lymphatic: No Symptoms Immunological/Allergic: No Symptoms All Other Systems: Reviewed and Negative - Past Medical History Pertinent Past Medical History: Yes Neurological History: No Pertinent History ENT History: No Pertinent History Cardiac History: Hypertension, Other Respiratory History: No Pertinent History Endocrine Medical History: No Pertinent History Musculoskeletal History: No Pertinent History GI Medical History: GERD History: No Pertinent History Psycho-Social History: Anxiety Female Reproductive Disorders: No Pertinent History Other Medical History: narrowing of heart valve, 2 leaky valves. thyroid - Past Surgical History Past Surgical History: Yes Neuro Surgical History: No Pertinent History Cardiac: No Pertinent History Respiratory: No Pertinent History Gastrointestinal: Cholecystectomy Genitourinary: No Pertinent History Musculoskeletal: No Pertinent History Female Surgical History: Section Other Surgical History: heart surgery as a child. ear tubes as a child - Social History Smoking Status: Never smoker Exposure to second hand smoke: No Drug Use: none Patient Lives Alone: No - Female History Hx Now: No - Nursing Vital Signs Nursing Vital Signs: Initial Vital Signs Temperature 98.2 F 01/16/19 20:30 Pulse Rate 84 01/16/19 20:30 Respiratory Rate 16 01/16/19 20:30 Blood Pressure 135/83 01/16/19 20:30 O2 Sat by Pulse Oximetry 98 01/16/19 20:30 Pain Scale Pain Intensity 3 - Physical Exam General Appearance: mild distress, alert, anxiety Eye Exam: PERRL/EOMI Ears, Nose, Throat Exam: normal ENT inspection, moist mucous membranes Neck Exam: normal inspection, non-tender, supple, full range of motion Respiratory Exam: normal breath sounds, lungs clear, airway intact, No chest tenderness, No respiratory distress Cardiovascular Exam: regular rate/rhythm, normal heart sounds, normal peripheral pulses Gastrointestinal/Abdomen Exam: soft, normal bowel sounds, tenderness (mild rlq) , guarding, No rebound Pelvic Exam: not done Rectal Exam: not done Back Exam: normal inspection, normal range of motion, No CVA tenderness, No vertebral tenderness Extremity Exam: normal inspection, normal range of motion, pelvis stable Neurologic Exam: alert, oriented x 3, cooperative, culinary intern II-XII nml as tested Skin Exam: normal color, warm, dry Lymphatic Exam: No adenopathy SpO2 Interpretation: normal SpO2: 98 O2 Delivery: Room Air - Course Nursing assessment & vital signs reviewed: Yes Ordered Tests: Active Orders 24 hr Category Date Time Status Clean Catch Urine Specimen STAT Care 01/16/19 20:48 Active IV Insertion STAT Care 01/16/19 20:48 Active ABDOMEN AND PELVIS W/0 CONTRAS [CT] Stat Exams 01/16/19 20:48 Ordered AMYLASE Stat Lab 01/16/19 20:30 Completed CBC W DIFF Stat Lab 01/16/19 20:30 Completed CMP Stat Lab 01/16/19 20:30 Completed HCG,QUALITATIVE URINE Stat Lab 01/16/19 20:30 Completed LIPASE Stat Lab 01/16/19 20:30 Completed Lactic Acid Stat Lab 01/16/19 21:05 Results UA W/RFX UR CULTURE Stat Lab 01/16/19 20:30 Completed Medication Summary Discontinued Medications Generic Name Dose Route Start Last Admin Trade Name Kenji PRN Reason Stop Dose Admin Sodium Chloride 1,000 mls @ 999 mls/hr 01/16/19 20:48 01/16/19 21:07 Sodium Chloride 0.9% 1000 Ml IV 01/16/19 21:48 999 mls/hr .Q1H1M STA Administration Sodium Chloride Confirm 01/16/19 21:04 Sodium Chloride 0.9% 1000 Ml Administered 01/16/19 21:05 Dose 1,000 mls @ ud .ROUTE .STK-MED ONE Sodium Chloride Confirm 01/16/19 21:06 Sodium Chloride 0.9% 1000 Ml Administered 01/16/19 21:07 Dose 1,000 mls @ ud .ROUTE .STK-MED ONE Lab/Rad Data: Laboratory Result Diagrams 01/16/19 20:30 01/16/19 20:30 Laboratory Results 01/16/19 01/16/19 01/16/19 Range/Units 21:05 20:30 20:30 WBC (4.0-10.5) K/mm3 RBC (4.1-5.4) M/mm3 Hgb (12.0-16.0) gm/dl Hct (35-47) % MCV (78-100) fl MCH (26-32) pg MCHC (32-36) g/dl RDW (11.5-14.0) % Plt Count (150-450) K/mm3 MPV (6-9.5) fl Gran % (36.0-66.0) % Eos # (Auto) (0-0.5) Absolute Lymphs (auto) (1.0-4.6) Absolute Monos (auto) (0.0-1.3) Lymphocytes % (24.0-44.0) % Monocytes % (0.0-12.0) % Eosinophils % (0.00-5.0) % Basophils % (0.0-0.4) % Absolute Granulocytes (1.4-6.9) Basophils # (0-0.4) Sodium (137-145) mmol/L Potassium (3.5-5.1) mmol/L Chloride (98-107) mmol/L Carbon Dioxide (22-30) mmol/L Anion Gap (5-15) MEQ/L BUN (7-17) mg/dL Creatinine (0.52-1.04) mg/dL Estimated GFR ML/MIN Glucose (74-106) mg/dL Lactic Acid 2.0 (0.4-2.0) Calcium (8.4-10.2) mg/dL Total Bilirubin (0.2-1.3) mg/dL AST (14-36) U/L ALT (0-35) U/L Alkaline Phosphatase (38-126) U/L Serum Total Protein (6.3-8.2) g/dL Albumin (3.5-5.0) g/dL Amylase (30-110) U/L Lipase (23-300) U/L Urine Color YELLOW (YELLOW) Urine Appearance SLIGHTLY CLOUDY (CLEAR) Urine pH 5.0 (5-6) Ur Specific [place] 1.027 (1.005-1.025) Urine Protein NEGATIVE (Negative) Urine Ketones NEGATIVE (NEGATIVE) Urine Blood NEGATIVE (0-5) Codey/ul Urine Nitrite NEGATIVE (NEGATIVE) Urine Bilirubin NEGATIVE (NEGATIVE) Urine Urobilinogen 2 (0-1) mg/dL Ur Leukocyte Esterase NEGATIVE (NEGATIVE) Urine WBC (Auto) NONE (0-5) /HPF Urine RBC (Auto) NONE (0-2) /HPF U Epithel Cells (Auto) RARE (FEW) /HPF Urine Mucus (Auto) SLIGHT (NEGATIVE) /HPF Urine Culture Reflexed NO (NO) Urine Glucose NEGATIVE (NEGATIVE) mg/dL Urine HCG, Qual NEGATIVE (Negative) Slides for Path Review 01/16/19 01/16/19 Range/Units 20:30 20:30 WBC 4.2 (4.0-10.5) K/mm3 RBC 3.87 L (4.1-5.4) M/mm3 Hgb 12.2 (12.0-16.0) gm/dl Hct 36.8 (35-47) % MCV 95.1 (78-100) fl MCH 31.5 (26-32) pg MCHC 33.2 (32-36) g/dl RDW 12.6 (11.5-14.0) % Plt Count 217 (150-450) K/mm3 MPV 9.7 H (6-9.5) fl Gran % 47.0 (36.0-66.0) % Eos # (Auto) 0.09 (0-0.5) Absolute Lymphs (auto) 1.75 (1.0-4.6) Absolute Monos (auto) 0.36 (0.0-1.3) Lymphocytes % 42.0 (24.0-44.0) % Monocytes % 8.6 (0.0-12.0) % Eosinophils % 2.2 (0.00-5.0) % Basophils % 0.2 (0.0-0.4) % Absolute Granulocytes 1.96 (1.4-6.9) Basophils # 0.01 (0-0.4) Sodium 141 (137-145) mmol/L Potassium 4.3 (3.5-5.1) mmol/L Chloride 104 (98-107) mmol/L Carbon Dioxide 28 (22-30) mmol/L Anion Gap 13.8 (5-15) MEQ/L BUN 17 (7-17) mg/dL Creatinine 0.85 (0.52-1.04) mg/dL Estimated GFR > 60.0 ML/MIN Glucose 123 H (74-106) mg/dL Lactic Acid (0.4-2.0) Calcium 9.5 (8.4-10.2) mg/dL Total Bilirubin 0.30 (0.2-1.3) mg/dL AST 22 (14-36) U/L ALT 21 (0-35) U/L Alkaline Phosphatase 42 (38-126) U/L Serum Total Protein 7.7 (6.3-8.2) g/dL Albumin 4.4 (3.5-5.0) g/dL Amylase 78 (30-110) U/L Lipase 90 (23-300) U/L Urine Color (YELLOW) Urine Appearance (CLEAR) Urine pH (5-6) Ur Specific [place] (1.005-1.025) Urine Protein (Negative) Urine Ketones (NEGATIVE) Urine Blood (0-5) Codey/ul Urine Nitrite (NEGATIVE) Urine Bilirubin (NEGATIVE) Urine Urobilinogen (0-1) mg/dL Ur Leukocyte Esterase (NEGATIVE) Urine WBC (Auto) (0-5) /HPF Urine RBC (Auto) (0-2) /HPF U Epithel Cells (Auto) (FEW) /HPF Urine Mucus (Auto) (NEGATIVE) /HPF Urine Culture Reflexed (NO) Urine Glucose (NEGATIVE) mg/dL Urine HCG, Qual (Negative) Slides for Path Review NO - Progress Progress: pain not gone completely, re-examined Progress Note: 01/16/19 21:[address] scan of abd/pelvis. risks benefits and alternatives d/w her. pt signed treatment refusal form. Counseled pt/family regarding: lab results, diagnosis, need for follow-up - Departure Time of Disposition: 21:54 Departure Disposition: Home Clinical Impression: Abdominal pain Condition: Stable Critical Care Time: No Referrals: EMILY MARTINEZ [Primary Care Provider] - Additional Instructions: follow up with radiology tomorrow for scheduled pelvic ultrasound. follow post ED instructions. follow up with geriatric personal care aide for results and appointment
[2019-01-16] MEDS ORDERED: Sodium Chloride 0.9% 1000 ML 1,000 ML ONE ×2 (21:04→21:06)
[2019-01-16 21:23] LABS: BASOPHIL % 0.2 % (0.0-0.4); Basophil (Absolute #) 0.01 (0-0.4); Eosinophil % 2.2 % (0.00-5.0); Eosinophil (Absolute #) 0.09 (0-0.5); Granulocyte Absolute (ANC) 1.96 (1.4-6.9); Hematocrit 36.8 % (35-47); Hemoglobin 12.2 gm/dl (12.0-16.0); Lymphocyte (Absolute #) 1.75 (1.0-4.6); Mean Cell Volume 95.1 fl (78-100); Mean Corpuscular Hemoglobin 31.5 pg (26-32); Mean Corpuscular Hgb Concent. 33.2 g/dl (32-36); Mean Platelet Volume 9.7 fl (6-9.5); Monocyte (Absolute #) 0.36 (0.0-1.3); Monocytes % 8.6 % (0.0-12.0); Platelet Count 217 K/mm3 (150-450); Red Blood Count 3.87 M/mm3 (4.1-5.4); Red Cell Distribution Width 12.6 % (11.5-14.0); White Blood Count 4.2 K/mm3 (4.0-10.5)
[2019-01-16 21:24] VITALS: O2SAT 98
[2019-01-16 21:27] LABS: Slide Review 1 NO
[2019-01-16 21:29] LABS: Appearance SLIGHTLY CLOUDY (CLEAR); Bilirubin NEGATIVE (NEGATIVE); Blood NEGATIVE Ery/ul (0-5); Epithelial Cells RARE /HPF (FEW); Glucose NEGATIVE (NEGATIVE); Ketones NEGATIVE (NEGATIVE); Leukocyte Esterase NEGATIVE (NEGATIVE); Mucus SLIGHT /HPF (NEGATIVE); Nitrite NEGATIVE (NEGATIVE); Protein,Urine Dip NEGATIVE (Negative); Specific Gravity 1.027 (1.005-1.025); Urobilinogen 2 mg/dL (0-1)
[2019-01-16 21:37] LABS: ALBUMIN 4.4 g/dL (3.5-5.0); ALKALINE PHOSPHATASE 42 U/L (38-126); AMYLASE 78 U/L (30-110); ANION GAP 13.8 MEQ/L (5-15); BLOOD UREA NITROGEN 17 mg/dL (7-17); CHLORIDE 104 mmol/L (98-107); Calcium 9.5 mg/dL (8.4-10.2); Carbon Dioxide 28 mmol/L (22-30); Creatinine 1 0.85 mg/dL (0.52-1.04); Glucose 123 mg/dL (74-106); LIPASE 90 U/L (23-300); Potassium 4.3 mmol/L (3.5-5.1); SGOT/AST 22 U/L (14-36); SGPT/ALT 21 U/L (0-35); SODIUM 141 mmol/L (137-145); Total Protein 7.7 g/dL (6.3-8.2)
[2019-01-16 22:09] VITALS: BP 112/66; PULSE 72
== END 2019-01-16 22:13 | disposition home or self-care (01) ==
LOC: ED 19:41
DX: R10.31 Right lower quadrant pain (principal); I10 Essential (primary) hypertension; K21.9 Gastro-esophageal reflux disease without esophagitis; F41.9 Anxiety disorder, unspecified; N83.209 Unspecified ovarian cyst, unspecified side
CPT/HCPCS: 36000; 36415; 80053; 81001; 82150; 83605; 83690; 84703; 85025; 96360; 99284

== ENCOUNTER 2019-04-06 21:14 | Emergency (ER) | payer OTHER ==
[2019-04-06 21:30] VITALS: BP 149/75
--- NOTE | 2019-04-06 21:58 | ERPHSYRPT ---
- History of Present Illness Time Seen by Provider: 04/06/19 21:54 Source: patient, family Exam Limitations: no limitations Patient Subjective Stated Complaint: pt is alert and oriented. pt is ambulatory with a steady gait. pt comes in with c/o left lower arm pain. pt states that she does not know of a definiate injury occuring. pt states she was playing in a pool yesterday and thinks she could have hurt it then. pt states that her pain is in her left forearm. no obvious injury noted. no swelling. no redness. no abrasions or lacerations. no discoloration. no loss of ROM in elbow joint or wrist joint. Triage Nursing Assessment: see above Physician History: pt was outside yesterday on resendez and may have strained arm but has severe muscle pain left forearm - sunburn shoulders but different kind of pain ; muscle is tender extensor left forearm , no chest pain or shortness of breath or N/V; full ROm and distal neuro intact; Occurred: yesterday Method of Injury: sports injury Quality: constant, aching, sharpness, throbbing Severity of Pain-Max: moderate Severity of Pain-Current: moderate Extremities Pain Location: forearm: left Modifying Factors: Improves With: movement Associated Symptoms: none Allergies/Adverse Reactions: carbinoxamine [From Pediox] Allergy (Verified 01/16/19 20:29) chlorpheniramine [From Pediox] Allergy (Verified 01/16/19 20:29) pseudoephedrine [From Pediox] Allergy (Verified 01/16/19 20:29) Home Medications: Labetalol HCl 200 mg PO BID 06/04/18 [History] Levothyroxine Sodium [Tirosint] 150 mcg PO DAILY 12/28/18 [History] Hx Tetanus, Diphtheria Vaccination/Date Given: Yes Hx Influenza Vaccination/Date Given: Yes Hx Pneumococcal Vaccination/Date Given: No Immunizations Up to Date: Yes - Review of Systems Constitutional: No Fever, No Chills Eyes: No Symptoms Ears, Nose, & Throat: No Symptoms Respiratory: No Cough, No Dyspnea Cardiac: No Chest Pain, No Edema, No Syncope Abdominal/Gastrointestinal: No Abdominal Pain, No Nausea, No Vomiting, No Diarrhea Genitourinary Symptoms: No Dysuria Musculoskeletal: Injury, No Back Pain, No Neck Pain Skin: No Rash Neurological: No Dizziness, No Focal Weakness, No Sensory Changes Psychological: No Symptoms Endocrine: No Symptoms All Other Systems: Reviewed and Negative - Past Medical History Pertinent Past Medical History: Yes Neurological History: No Pertinent History ENT History: No Pertinent History Cardiac History: Hypertension, Other Respiratory History: No Pertinent History Endocrine Medical History: No Pertinent History Musculoskeletal History: No Pertinent History GI Medical History: GERD History: No Pertinent History Psycho-Social History: Anxiety Female Reproductive Disorders: No Pertinent History Other Medical History: narrowing of heart valve, 2 leaky valves. thyroid - Past Surgical History Past Surgical History: Yes Neuro Surgical History: No Pertinent History Cardiac: No Pertinent History Respiratory: No Pertinent History Gastrointestinal: Cholecystectomy Genitourinary: No Pertinent History Musculoskeletal: No Pertinent History Female Surgical History: Section Other Surgical History: heart surgery as a child. ear tubes as a child - Social History Smoking Status: Never smoker Exposure to second hand smoke: No Drug Use: none Patient Lives Alone: No - Female History Hx Now: No - Nursing Vital Signs Nursing Vital Signs: Initial Vital Signs Temperature 98.4 F 04/06/19 21:23 Pulse Rate 65 04/06/19 21:23 Respiratory Rate 18 04/06/19 21:23 Blood Pressure 149/75 04/06/19 21:23 O2 Sat by Pulse Oximetry 99 04/06/19 21:23 Pain Scale Pain Intensity 9 - Physical Exam General Appearance: alert Eyes, Ears, Nose, Throat Exam: moist mucous membranes Neck Exam: non-tender, supple Cardiovascular/Respiratory Exam: chest non-tender, normal breath sounds, regular rate/rhythm, no respiratory distress Abdominal Exam: non-tender, No guarding Back Exam: normal inspection, No vertebral tenderness Shoulder Exam: normal inspection, non-tender, no evidence of injury, normal ROM Elbow/Forearm Exam: normal ROM, pain, soft tissue tenderness, swelling Wrist Exam: normal inspection, non-tender, no evidence of injury, normal ROM Hand Exam: normal inspection, non-tender, no evidence of injury, normal ROM DTR - Upper Extremity Exam: bicep (R): 2+, bicep (L): 2+, tricep (R): 2+, tricep (L): 2+ Neuro/Tendon Exam: normal sensation, normal motor functions Mental Status Exam: alert, oriented x 3, cooperative Skin Exam: normal color, warm, dry SpO2 Interpretation: normal SpO2: 99 O2 Delivery: Room Air - Course Nursing assessment & vital signs reviewed: Yes - Radiology Exams Left Forearm X-ray Interpretation: Reviewed by me, No Fracture Ordered Tests: Active Orders 24 hr Category Date Time Status FOREARM Stat Exams 04/06/19 22:00 Taken CBC W DIFF Stat Lab 04/06/19 22:42 Completed CK-Creatinine Phosphokinase Stat Lab 04/06/19 22:42 Completed CMP Stat Lab 04/06/19 22:42 Completed Lactic Acid Stat Lab 04/06/19 22:40 Results Lab/Rad Data: Laboratory Result Diagrams 04/06/19 22:42 04/06/19 22:42 Laboratory Results 04/06/19 04/06/19 04/06/19 Range/Units 22:42 22:42 22:40 WBC 4.6 (4.0-10.5) K/mm3 RBC 3.52 L (4.1-5.4) M/mm3 Hgb 11.7 L (12.0-16.0) gm/dl Hct 33.8 L (35-47) % MCV 96.0 (78-100) fl MCH 33.2 H (26-32) pg MCHC 34.6 (32-36) g/dl RDW 13.5 (11.5-14.0) % Plt Count 217 (150-450) K/mm3 MPV 9.8 H (6-9.5) fl Gran % 41.8 (36.0-66.0) % Eos # (Auto) 0.10 (0-0.5) Absolute Lymphs (auto) 2.24 (1.0-4.6) Absolute Monos (auto) 0.31 (0.0-1.3) Lymphocytes % 49.0 H (24.0-44.0) % Monocytes % 6.8 (0.0-12.0) % Eosinophils % 2.2 (0.00-5.0) % Basophils % 0.2 (0.0-0.4) % Absolute Granulocytes 1.91 (1.4-6.9) Basophils # 0.01 (0-0.4) Sodium 140 (137-145) mmol/L Potassium 3.7 (3.5-5.1) mmol/L Chloride 104 (98-107) mmol/L Carbon Dioxide 23 (22-30) mmol/L Anion Gap 16.7 H (5-15) MEQ/L BUN 13 (7-17) mg/dL Creatinine 0.81 (0.52-1.04) mg/dL Estimated GFR > 60.0 ML/MIN Glucose 137 H (74-106) mg/dL Lactic Acid 2.5 H (0.4-2.0) Calcium 9.1 (8.4-10.2) mg/dL Total Bilirubin 0.20 (0.2-1.3) mg/dL AST 19 (14-36) U/L ALT 16 (0-35) U/L Alkaline Phosphatase 42 (38-126) U/L Creatine Kinase 91 (30-135) U/L Serum Total Protein 7.2 (6.3-8.2) g/dL Albumin 3.8 (3.5-5.0) g/dL - Progress Progress: improved, re-examined Progress Note: 04/07/19 00:17 pt feels better now and will take dyana and sling and f/u PCP and return meantime if any concerns Counseled pt/family regarding: lab results, diagnosis, need for follow-up, rad results - Departure Departure Disposition: Home Clinical Impression: overuse injury left forearm Condition: Good Critical Care Time: No Referrals: EMILY MARTINEZ [Primary Care Provider] - Instructions: Muscle Strain Additional Instructions: use ice and elevation next few days and sling if needed. followup with your if not resolved in about a week return meantime if any concerns, increased pain, increased numbness , redness or swelling. also recheck your blood pressure with your
[2019-04-06 22:44] LABS: BASOPHIL % 0.2 % (0.0-0.4); Basophil (Absolute #) 0.01 (0-0.4); Eosinophil % 2.2 % (0.00-5.0); Granulocyte Absolute (ANC) 1.91 (1.4-6.9); Granulocytes % 41.8 % (36.0-66.0); Hematocrit 33.8 % (35-47); Hemoglobin 11.7 gm/dl (12.0-16.0); Lymphocyte (Absolute #) 2.24 (1.0-4.6); Mean Corpuscular Hemoglobin 33.2 pg (26-32); Mean Corpuscular Hgb Concent. 34.6 g/dl (32-36); Mean Platelet Volume 9.8 fl (6-9.5); Monocyte (Absolute #) 0.31 (0.0-1.3); Monocytes % 6.8 % (0.0-12.0); Platelet Count 217 K/mm3 (150-450); Red Blood Count 3.52 M/mm3 (4.1-5.4); Red Cell Distribution Width 13.5 % (11.5-14.0); White Blood Count 4.6 K/mm3 (4.0-10.5)
[2019-04-06 22:49] LABS: Lactic Acid 2.5 (0.4-2.0)
[2019-04-06 22:55] LABS: ALBUMIN 3.8 g/dL (3.5-5.0); ALKALINE PHOSPHATASE 42 U/L (38-126); BLOOD UREA NITROGEN 13 mg/dL (7-17); CHLORIDE 104 mmol/L (98-107); Carbon Dioxide 23 mmol/L (22-30); Creatinine 1 0.81 mg/dL (0.52-1.04); Glucose 137 mg/dL (74-106); SGOT/AST 19 U/L (14-36); Total Protein 7.2 g/dL (6.3-8.2)
[2019-04-06 23:10] LABS: CK-Creatinine Phosphokinase 91 U/L (30-135); Potassium 3.7 mmol/L (3.5-5.1); SGPT/ALT 16 U/L (0-35); SODIUM 140 mmol/L (137-145)
[2019-04-06 23:29] LABS: ANION GAP 16.7 MEQ/L (5-15); Calcium 9.1 mg/dL (8.4-10.2)
[2019-04-06 23:32] VITALS: PULSE 62
[2019-04-07 00:09] VITALS: O2SAT 99
--- NOTE | 2019-04-07 07:59 | XRAY ---
Indication: Pain following hyperextension injury. Comparison: None 2 views of the left forearm obtained. No bony, articular, or soft tissue abnormalities.
== END 2019-04-07 00:27 | disposition home or self-care (01) ==
LOC: ED 21:14
DX: M70.832 Other soft tissue disorders related to use, overuse and pressure, left forearm (principal); M79.632 Pain in left forearm
CPT/HCPCS: 36415; 73090; 80053; 82550; 83605; 85025; 99284

== ENCOUNTER 2019-10-03 06:36 | Emergency (ER) | payer OTHER ==
[2019-10-03] MEDS ORDERED: Sodium Chloride 0.9% 1000 ML 1,000 ML IV STA (06:59)
[2019-10-03] MEDS ORDERED: Zofran 4 MG/2 ML VIAL IV ONE (06:59)
[2019-10-03] MEDS ORDERED: Zofran 4 MG/2 ML VIAL ONE (07:01)
[2019-10-03] MEDS ORDERED: Sodium Chloride 0.9% 1000 ML 1,000 ML ONE (07:01)
[2019-10-03] MEDS ORDERED: Hydromorphone 1 mg/ml Ampule IV ONE (07:29)
[2019-10-03] MEDS ORDERED: Hydromorphone 1 mg/ml Ampule ONE (07:31)
--- NOTE | 2019-10-03 07:38 | ERPHSYRPT ---
- History of Present Illness Time Seen by Provider: 10/03/19 07:17 Source: patient Exam Limitations: no limitations Patient Subjective Stated Complaint: pt states she has had headache for three days, states her r side of her body went numb three days ago, today only a porter pain above left eyebrow. pt states she used to regularly have migraines, but has not had one for some time until three days ago. Triage Nursing Assessment: pt alert and oriented, pt crying and holding head stating that she is having pain on l side of head. rates pain 10/10 Physician History: This's a 23 yr old pt. c/o migraine headache x 3 days. located mostly on left side of forehead, 10/10, throbbing pain, associated with nausea, vomiting x 2, photophobia. States 2 days ago her left side was numb for a few hours. This is her usual migraine. States she used to get migraines frequently prior to 2016. Denies any more numbness/weakness/blurry or double vision/head trauma/fever/ neck pain/ "worst headache of life" / falls/ focal weakness/syncopy/neck stiffness Timing/Duration: day(s) (2) Quality: throbbing Head Pain Location: frontal Severity of Pain-Max: moderate Severity of Pain-Current: moderate Recent Head Trauma: no recent headache/trauma Modifying Factors: Improves With: exposure to light Associated Symptoms: denies symptoms Previous symptoms: no recent treatment Allergies/Adverse Reactions: carbinoxamine [From Pediox] Allergy (Verified 01/16/19 20:29) chlorpheniramine [From Pediox] Allergy (Verified 01/16/19 20:29) pseudoephedrine [From Pediox] Allergy (Verified 01/16/19 20:29) Home Medications: Labetalol HCl 200 mg PO BID 06/04/18 [History] Levothyroxine Sodium [Tirosint] 150 mcg PO DAILY 12/28/18 [History] Hx Tetanus, Diphtheria Vaccination/Date Given: Yes Hx Influenza Vaccination/Date Given: Yes Hx Pneumococcal Vaccination/Date Given: No - Review of Systems Constitutional: No Fever, No Chills Eyes: No Symptoms Ears, Nose, & Throat: No Symptoms Respiratory: No Cough, No Dyspnea Cardiac: No Chest Pain, No Edema, No Syncope Abdominal/Gastrointestinal: Nausea, Vomiting (x2), No Abdominal Pain, No Diarrhea Genitourinary Symptoms: No Dysuria Musculoskeletal: No Back Pain, No Neck Pain Skin: No Rash Neurological: No Dizziness, No Focal Weakness, No Sensory Changes Psychological: No Symptoms Endocrine: No Symptoms All Other Systems: Reviewed and Negative - Past Medical History Pertinent Past Medical History: Yes Neurological History: No Pertinent History ENT History: No Pertinent History Cardiac History: Angina, Hypertension Respiratory History: Asthma Endocrine Medical History: Hypothyroidism Musculoskeletal History: No Pertinent History GI Medical History: GERD History: No Pertinent History Psycho-Social History: Anxiety Female Reproductive Disorders: No Pertinent History Other Medical History: Go's - Past Surgical History Past Surgical History: Yes Neuro Surgical History: No Pertinent History Cardiac: No Pertinent History Respiratory: No Pertinent History Gastrointestinal: Cholecystectomy Genitourinary: No Pertinent History Musculoskeletal: No Pertinent History Female Surgical History: Section Other Surgical History: heart surgery as a child. ear tubes as a child - Social History Smoking Status: Never smoker Exposure to second hand smoke: No Drug Use: none Patient Lives Alone: No - Female History Hx Last Menstrual Period: 09/20/19 Hx Now: (unknown) - Nursing Vital Signs Nursing Vital Signs: Initial Vital Signs Temperature 97.5 F 10/03/19 06:39 Pulse Rate 94 H 10/03/19 06:39 Respiratory Rate 18 10/03/19 06:39 Blood Pressure 153/77 10/03/19 06:39 O2 Sat by Pulse Oximetry 97 10/03/19 06:39 Pain Scale Pain Intensity 2 - Physical Exam General Appearance: no apparent distress Eye Exam: PERRL/EOMI Ears, Nose, Throat Exam: normal ENT inspection, moist mucous membranes Neck Exam: normal inspection, supple, full range of motion, No meningismus Respiratory Exam: normal breath sounds, lungs clear Cardiovascular Exam: regular rate/rhythm, normal heart sounds Gastrointestinal/Abdominal Exam: soft, No tenderness, No distention Back Exam: normal inspection, normal range of motion Mental Status Exam: alert, oriented x 3, cooperative revenue investigator Exam: normal speech, PERRL, No facial droop Coordination/Gait Exam: normal cerebellar function Motor/Sensory Exam: no motor deficit, no sensory deficit Skin Exam: normal color, warm, dry, No rash SpO2: 97 - Course EKG Interpreted by Me: RATE, Sinus Rhythm, Sinus Vicente, NORMAL AXIS, NORMAL INTERVALS, NORMAL QRS Rhythm Strip: Normal Sinus Rhythm, Sinus Bradycardia Ordered Tests: Medication Summary Discontinued Medications Generic Name Dose Route Start Last Admin Trade Name Kenji PRN Reason Stop Dose Admin Hydromorphone HCl 1 mg 10/03/19 07:29 10/03/19 07:32 Hydromorphone 1 Mg/Ml Ampule IV 10/03/19 07:30 1 mg STAT ONE Administration Hydromorphone HCl Confirm 10/03/19 07:31 Hydromorphone 1 Mg/Ml Ampule Administered 10/03/19 07:32 Dose 1 mg .ROUTE .STK-MED ONE Sodium Chloride 1,000 mls @ 999 mls/hr 10/03/19 06:59 10/03/19 08:12 Sodium Chloride 0.9% 1000 Ml IV 10/03/19 07:59 Infused .Q1H1M STA Infusion Sodium Chloride Confirm 10/03/19 07:01 Sodium Chloride 0.9% 1000 Ml Administered 10/03/19 07:02 Dose 1,000 mls @ ud .ROUTE .STK-MED ONE Ondansetron HCl 4 mg 10/03/19 06:59 10/03/19 07:05 Zofran 4 Mg/2 Ml Vial IV 10/03/19 07:00 4 mg STAT ONE Administration Ondansetron HCl Confirm 10/03/19 07:01 Zofran 4 Mg/2 Ml Vial Administered 10/03/19 07:02 Dose 4 mg .ROUTE .STK-MED ONE Promethazine HCl 12.5 mg 10/03/19 07:44 10/03/19 07:48 Phenergan 25 Mg Inj IM 10/03/19 07:45 12.5 mg STAT ONE Administration Promethazine HCl Confirm 10/03/19 07:47 Phenergan 25 Mg Inj Administered 10/03/19 07:48 Dose 25 mg .ROUTE .STK-MED ONE - Progress Progress: improved (patient had HR ranging between 54-90 throughout her ED course. Her heart rate dropped to the upper 50's after a dose of dilaudid. Patient history reviewed, she states that she has a heart condition with valve abnormalities- which makes her heart rate drop. 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 EKG obtained- shows no evidence of [place] or heart block.), re-examined Air Movement: good Blood Culture(s) Obtained: No Antibiotics given: No - Departure Departure Disposition: Home Clinical Impression: Migraine Condition: Stable Critical Care Time: No Referrals: EMILY MARTINEZ [Primary Care Provider] - Instructions: Headache, Adult (DC) Prescriptions: Ondansetron ODT 4 MG [Zofran Odt 4 mg] 4 mg PO Q6H PRN PRN #10 tab.rapdis PRN Reason: Vomiting
[2019-10-03] MEDS ORDERED: Phenergan 25 MG INJ IM ONE (07:44)
[2019-10-03] MEDS ORDERED: Phenergan 25 MG INJ ONE (07:47)
[2019-10-03 08:14] VITALS: BP 120/65; PULSE 51
[2019-10-03 08:15] VITALS: O2SAT 97
== END 2019-10-03 08:24 | disposition home or self-care (01) ==
LOC: ED 06:36
DX: R11.2 Nausea with vomiting, unspecified (principal); G43.909 Migraine, unspecified, not intractable, without status migrainosus
CPT/HCPCS: 36000; 93005; 96360; 96372; 96374; 96375; 99284; J1170; J2405; J2550

== ENCOUNTER 2020-04-17 16:10 | Observation (INO) | payer OTHER ==
[2020-04-17 16:33] VITALS: BP 133/63; PULSE 75
== END 2020-04-17 16:45 | disposition home or self-care (01) ==
LOC: OB 16:10
PROVIDERS: ADMIT Internal Medicine; ATTEND Internal Medicine
DX: Z34.82 Encounter for supervision of other normal pregnancy, second trimester (principal)
CPT/HCPCS: G0378

== ENCOUNTER 2023-02-15 18:18 | Emergency (ER) | payer OTHER ==
[2023-02-15 19:20] LABS: HCG URINE TEST NEGATIVE (NEGATIVE)
[2023-02-15 19:27] LABS: Appearance Clear (Clear); Bacteria Moderate /HPF (None Seen); Bilirubin Negative (Negative); Blood Negative (Negative); Epithelial Cells Moderate /HPF (None Seen); Glucose, Urine Negative (Negative); Hyaline Casts NONE SEEN /LPF (0-2); Ketones Negative (Negative); Leukocyte Esterase Negative (Negative); Nitrite Negative (Negative); Protein,Urine Dip Negative (Negative); RBC 0-2 /HPF (0-5); Urobilinogen 0.2 mg/dL (0.2); WBC 0-2 /HPF (0-5)
[2023-02-15 19:30] LABS: ADD URINE CULTURE? YES (NO)
[2023-02-15] MEDS ORDERED: Sodium Chloride 0.9% 1000 ML 1,000 ML IV STA (19:30)
[2023-02-15] MEDS ORDERED: TYLENOL 325 MG PO ONE (19:30)
[2023-02-15] MEDS ORDERED: Zofran 4 MG/2 ML VIAL IV ONE (19:30)
[2023-02-15] MEDS ORDERED: Compazine 10 MG/2 ML IV ONE (19:31)
[2023-02-15 19:38] LABS: Amphetamine,Urine NEGATIVE (NEGATIVE); Barbiturate,Urine NEGATIVE (NEGATIVE); Benzodiazepine,Urine NEGATIVE (NEGATIVE); Cocaine,Urine NEGATIVE (NEGATIVE); Methadone,Urine NEGATIVE (NEGATIVE); Opiate,Urine NEGATIVE (NEGATIVE); PCP,Urine NEGATIVE (NEGATIVE); THC,Urine NEGATIVE (NEGATIVE)
[2023-02-15] MEDS ORDERED: TYLENOL 325 MG ONE (19:41)
[2023-02-15] MEDS ORDERED: Compazine 10 MG/2 ML ONE (19:42)
[2023-02-15] MEDS ORDERED: Sodium Chloride 0.9% 1000 ML 1,000 ML ONE (19:42)
[2023-02-15 19:51] LABS: Absolute Neutrophil Ct (ANC) 1.94 x10^3/uL (1.4-6.9); BASOPHIL % 0.2 % (0.0-0.4); Basophil (Absolute #) 0.01 x10^3/uL (0-0.4); Eosinophil % 3.2 % (0.00-5.0); Eosinophil (Absolute #) 0.14 x10^3/uL (0-0.5); Hematocrit 37.3 % (35-47); Hemoglobin 12.8 g/dL (12.0-16.0); IMMATURE GRAN # 0.01 x10^3u/L (0.00-0.03); IMMATURE GRAN % 0.2 % (0.00-0.4); Lymphocyte (Absolute #) 1.96 x10^3/uL (1.0-4.6); Lymphocytes % 44.9 % (24.0-44.0); Mean Corpuscular Hemoglobin 32.2 pg (26-32); Mean Corpuscular Hgb Concent. 34.3 g/dL (32-36); Mean Platelet Volume 9.9 fL (7.5-11.0); Monocyte (Absolute #) 0.31 x10^3/uL (0.0-1.3); Monocytes % 7.1 % (0.0-12.0); Neutrophil % 44.4 % (36.0-66.0); Platelet Count 223 x10^3/uL (150-450); Red Blood Count 3.97 x10^6/uL (4.1-5.4); Red Cell Distribution Width 11.9 % (11.5-14.0); White Blood Count 4.4 x10^3/uL (4.0-10.5)
[2023-02-15 20:05] LABS: ALBUMIN 4.4 g/dL (3.5-5.0); ALKALINE PHOSPHATASE 39 U/L (38-126); ANION GAP 14.5 MEQ/L (5-15); BLOOD UREA NITROGEN 14 mg/dL (7-17); CHLORIDE 102 mmol/L (98-107); Carbon Dioxide 28 mmol/L (22-30); Creatinine 1 0.88 mg/dL (0.52-1.04); EST GLOMERULAR FILTRATION RATE > 60.0 ML/MIN; Glucose 87 mg/dL (74-106); Potassium 4.1 mmol/L (3.5-5.1); SGOT/AST 41 U/L (14-36); SGPT/ALT 35 U/L (0-35); SODIUM 141 mmol/L (137-145)
--- NOTE | 2023-02-15 21:40 | ERPHSYRPT ---
- History of Present Illness Time Seen by Provider: 02/15/23 19:00 Source: patient Exam Limitations: no limitations Patient Subjective Stated Complaint: C/O left sided headache that started approx one hour prior to coming to the ER. Patient states it started aften "an adju stment" at [facility]. Triage Nursing Assessment: Patient ambulated back to ER without difficulties; steady gait. No SOB. She is alert and oriented. Skin tone normal. Lights dimmed in room due to headache. Points to left side of forehead when asking where pain is located. Physician History: Patient is a 27-year-old female presents to emergency department for evaluation of a headache. Patient states she was at a chiropractor's office today. Patient had a neck manipulation. Immediately after the neck manipulation patient experienced a headache. Patient headache is significant. Patient states her became concerned with the level heart to her discomfort and brought her to our ED. no trauma. No fever. Symptoms are mild to moderate in intensity. No specific worsening improving factors. Patient voices no other complaints or concerns at this time. Portions of this note were created with voice recognition technology. There may be grammatical, spelling, punctuation or sound alike errors Timing/Duration: today Severity: moderate Modifying Factors: Improves With: nothing Associated Symptoms: denies symptoms Allergies/Adverse Reactions: carbinoxamine [From Pediox] Allergy (Verified 02/15/23 18:29) chlorpheniramine [From Pediox] Allergy (Verified 02/15/23 18:29) pseudoephedrine [From Pediox] Allergy (Verified 02/15/23 18:29) Home Medications: Multivitamin [Multi-Vitamin Daily] 1 tab PO DAILY 04/17/20 [History] Levothyroxine Sodium [Tirosint] 1 tab PO DAILY 02/15/23 [History] Semaglutide [Ozempic] 0.5 mg SQ WEEKLY 02/15/23 [History] Hx Tetanus, Diphtheria Vaccination/Date Given: Yes Hx Influenza Vaccination/Date Given: Yes Hx Pneumococcal Vaccination/Date Given: No Immunizations Up to Date: Yes Travel Risk - International Travel Have you traveled outside of the country in past 3 weeks: No - Coronavirus Screening Are you exhibiting any of the following symptoms?: Yes Symptoms: Headaches/Body Aches/Fatigue Close contact with a COVID-19 positive Pt in past 14-21 Days: No - Vaccine Status Have you recieved a Covid-19 vaccination: No - Review of Systems Constitutional: No Symptoms, No Fever, No Chills Eyes: No Symptoms Ears, Nose, & Throat: No Symptoms Respiratory: No Symptoms, No Cough, No Dyspnea Cardiac: No Symptoms, No Chest Pain, No Edema, No Syncope Abdominal/Gastrointestinal: No Symptoms, No Abdominal Pain, No Nausea, No Vomiting, No Diarrhea Genitourinary Symptoms: No Symptoms, No Dysuria Musculoskeletal: No Symptoms, No Back Pain, No Neck Pain Skin: No Symptoms, No Rash Neurological: No Symptoms, No Dizziness, No Focal Weakness, No Sensory Changes Psychological: No Symptoms Endocrine: No Symptoms Hematologic/Lymphatic: No Symptoms Immunological/Allergic: No Symptoms All Other Systems: Reviewed and Negative - Past Medical History Pertinent Past Medical History: Yes Neurological History: No Pertinent History ENT History: No Pertinent History Cardiac History: Angina, Hypertension Respiratory History: Asthma Endocrine Medical History: Hypothyroidism, Other Musculoskeletal History: No Pertinent History GI Medical History: GERD, Gallbladder Disease History: No Pertinent History Psycho-Social History: Anxiety Female Reproductive Disorders: No Pertinent History Other Medical History: Go's - Past Surgical History Past Surgical History: Yes Neuro Surgical History: No Pertinent History Cardiac: No Pertinent History Respiratory: No Pertinent History Gastrointestinal: Cholecystectomy Genitourinary: No Pertinent History Musculoskeletal: No Pertinent History Female Surgical History: Section Other Surgical History: heart surgery as a child; patient states "coil placed in my heart", ear tubes as a child - Social History Smoking Status: Never smoker Exposure to second hand smoke: No Drug Use: none Patient Lives Alone: No - Female History Hx Last Menstrual Period: almost a year Hx Now: No (not on control) - Nursing Vital Signs Nursing Vital Signs: Initial Vital Signs Temperature 97.7 F 02/15/23 18:32 Pulse Rate 70 02/15/23 18:32 Respiratory Rate 18 02/15/23 18:32 Blood Pressure 161/91 02/15/23 18:32 O2 Sat by Pulse Oximetry 100 02/15/23 18:32 Pain Scale Pain Intensity 0 - Physical Exam General Appearance: no apparent distress, alert Eye Exam: PERRL/EOMI, eyes nml inspection Ears, Nose, Throat Exam: normal ENT inspection, pharynx normal, moist mucous membranes Neck Exam: normal inspection, non-tender, supple, full range of motion Respiratory Exam: normal breath sounds, lungs clear, airway intact, No respiratory distress Cardiovascular Exam: regular rate/rhythm, normal heart sounds, normal peripheral pulses Gastrointestinal/Abdomen Exam: soft, normal bowel sounds, No tenderness, No mass Back Exam: normal inspection, normal range of motion, No CVA tenderness, No vertebral tenderness Extremity Exam: normal inspection, normal range of motion, pelvis stable Neurologic Exam: alert, oriented x 3, cooperative, normal mood/affect, nml cerebellar function, nml station & gait, sensation nml, No motor deficits Skin Exam: normal color, warm, dry, No rash Lymphatic Exam: No adenopathy SpO2 Interpretation: normal SpO2: 99 O2 Delivery: Room Air - Course Nursing assessment & vital signs reviewed: Yes - CT Exams Head CT Interpretation: Tele-radiologist Report (Completely normal CTA head) Soft Tissue Neck CT Interpretation: Tele-radiologist Report (Completely normal CTA neck) Ordered Tests: Active Orders 24 hr Category Date Time Status 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 STAT Care 02/15/23 19:29 Completed Clean Catch Urine Specimen STAT Care 02/15/23 19:06 Completed IV Insertion STAT Care 02/15/23 19:29 Completed Pulse Oximetry (ED) STAT Care 02/15/23 19:[address] ANGIOGRAPHY NECK [CT] Stat Exams 02/15/23 20:32 Taken CTA HEAD W AND/OR WO CONTRAST [CT] Stat Exams 02/15/23 19:32 Taken CBC W DIFF Stat Lab 02/15/23 19:40 Completed CMP Stat Lab 02/15/23 19:40 Completed CULTURE,URINE Stat Lab 02/15/23 19:09 Received HCG QUALITATIVE, URINE Stat Lab 02/15/23 19:20 Completed UA W/RFX UR CULTURE Stat Lab 02/15/23 19:09 Completed Urine Triage Profile Stat Lab 02/15/23 19:09 Completed Medication Summary Discontinued Medications Generic Name Dose Route Start Last Admin Trade Name Freq PRN Reason Stop Dose Admin Acetaminophen 975 mg 02/15/23 19:30 02/15/23 19:43 Acetaminophen 325 Mg Tablet PO 02/15/23 19:31 975 mg STAT ONE Administration Acetaminophen Confirm 02/15/23 19:41 Acetaminophen 325 Mg Tablet Administered 02/15/23 19:42 Dose 975 mg .ROUTE .STK-MED ONE Sodium Chloride 1,000 mls @ 999 mls/hr 02/15/23 19:30 02/15/23 20:58 Sodium Chloride 0.9% 1000 Ml IV 02/15/23 20:30 Infused .Q1H1M STA Infusion Sodium Chloride Confirm 02/15/23 19:42 Sodium Chloride 0.9% 1000 Ml Administered 02/15/23 19:43 Dose 1,000 mls @ ud .ROUTE .STK-MED ONE Ondansetron HCl 4 mg 02/15/23 19:30 02/15/23 19:44 Ondansetron Hcl 4 Mg/2 Ml Vial IV 02/15/23 19:31 Not Given STAT ONE Prochlorperazine Edisylate 10 mg 02/15/23 19:31 02/15/23 19:43 Prochlorperazine Edisylate 10 Mg/2 Ml Vial IV 02/15/23 19:32 10 mg STAT ONE Administration Prochlorperazine Edisylate Confirm 02/15/23 19:42 Prochlorperazine Edisylate 10 Mg/2 Ml Vial Administered 02/15/23 19:43 Dose 10 mg .ROUTE .[facility] ONE Lab/Rad Data: Laboratory Result Diagrams 02/15/23 19:40 02/15/23 19:40 Laboratory Results 02/15/23 02/15/23 02/15/23 Range/Units 19:40 19:40 19:20 WBC 4.4 (4.0-10.5) x10^3/uL RBC 3.97 L (4.1-5.4) x10^6/uL Hgb 12.8 (12.0-16.0) g/dL Hct 37.3 (35-47) % MCV 94.0 (78-100) fL MCH 32.2 H (26-32) pg MCHC 34.3 (32-36) g/dL RDW 11.9 (11.5-14.0) % Plt Count 223 (150-450) x10^3/uL MPV 9.9 (7.5-11.0) fL Gran % 44.4 (36.0-66.0) % Immature Gran % (Auto) 0.2 (0.00-0.4) % Nucleat RBC Rel Count 0.0 (0.00-0.1) % Eos # (Auto) 0.14 (0-0.5) x10^3/uL Immature Gran # (Auto) 0.01 (0.00-0.03) x10^3u/L Absolute Lymphs (auto) 1.96 (1.0-4.6) x10^3/uL Absolute Monos (auto) 0.31 (0.0-1.3) x10^3/uL Absolute Nucleated RBC 0.00 (0.00-0.01) x10^3u/L Lymphocytes % 44.9 H (24.0-44.0) % Monocytes % 7.1 (0.0-12.0) % Eosinophils % 3.2 (0.00-5.0) % Basophils % 0.2 (0.0-0.4) % Absolute Granulocytes 1.94 (1.4-6.9) x10^3/uL Basophils # 0.01 (0-0.4) x10^3/uL Sodium 141 (137-145) mmol/L Potassium 4.1 (3.5-5.1) mmol/L Chloride 102 (98-107) mmol/L Carbon Dioxide 28 (22-30) mmol/L Anion Gap 14.5 (5-15) MEQ/L BUN 14 (7-17) mg/dL Creatinine 0.88 (0.52-1.04) mg/dL Estimated GFR > 60.0 ML/MIN Glucose 87 (74-106) mg/dL Calcium 9.0 (8.4-10.2) mg/dL Total Bilirubin 0.60 (0.2-1.3) mg/dL AST 41 H (14-36) U/L ALT 35 (0-35) U/L Alkaline Phosphatase 39 (38-126) U/L Serum Total Protein 8.0 (6.3-8.2) g/dL Albumin 4.4 (3.5-5.0) g/dL Urine Color (Yellow) Urine Appearance (Clear) Urine pH (4.6-8.0) Ur Specific [place] (1.005-1.030) Urine Protein (Negative) Urine Glucose (UA) (Negative) mg/dL Urine Ketones (Negative) Urine Blood (Negative) Urine Nitrite (Negative) Urine Bilirubin (Negative) Urine Urobilinogen (0.2) mg/dL Ur Leukocyte Esterase (Negative) U Hyaline Cast (Auto) (0-2) /LPF Urine Microscopic RBC (0-5) /HPF Urine Microscopic WBC (0-5) /HPF Ur Epithelial Cells (None Seen) /HPF Urine Bacteria (None Seen) /HPF Urine Culture Reflexed (NO) Urine HCG, Qual NEGATIVE (NEGATIVE) Urine Opiates Level (NEGATIVE) Ur Methadone (NEGATIVE) Urine Barbiturates (NEGATIVE) Ur Phencyclidine (PCP) (NEGATIVE) Urine Amphetamine (NEGATIVE) U Benzodiazepine Level (NEGATIVE) Urine Cocaine (NEGATIVE) Urine Marijuana (THC) (NEGATIVE) 02/15/23 02/15/23 Range/Units 19:09 19:09 WBC (4.0-10.5) x10^3/uL RBC (4.1-5.4) x10^6/uL Hgb (12.0-16.0) g/dL Hct (35-47) % MCV (78-100) fL MCH (26-32) pg MCHC (32-36) g/dL RDW (11.5-14.0) % Plt Count (150-450) x10^3/uL MPV (7.5-11.0) fL Gran % (36.0-66.0) % Immature Gran % (Auto) (0.00-0.4) % Nucleat RBC Rel Count (0.00-0.1) % Eos # (Auto) (0-0.5) x10^3/uL Immature Gran # (Auto) (0.00-0.03) x10^3u/L Absolute Lymphs (auto) (1.0-4.6) x10^3/uL Absolute Monos (auto) (0.0-1.3) x10^3/uL Absolute Nucleated RBC (0.00-0.01) x10^3u/L Lymphocytes % (24.0-44.0) % Monocytes % (0.0-12.0) % Eosinophils % (0.00-5.0) % Basophils % (0.0-0.4) % Absolute Granulocytes (1.4-6.9) x10^3/uL Basophils # (0-0.4) x10^3/uL Sodium (137-145) mmol/L Potassium (3.5-5.1) mmol/L Chloride (98-107) mmol/L Carbon Dioxide (22-30) mmol/L Anion Gap (5-15) MEQ/L BUN (7-17) mg/dL Creatinine (0.52-1.04) mg/dL Estimated GFR ML/MIN Glucose (74-106) mg/dL Calcium (8.4-10.2) mg/dL Total Bilirubin (0.2-1.3) mg/dL AST (14-36) U/L ALT (0-35) U/L Alkaline Phosphatase (38-126) U/L Serum Total Protein (6.3-8.2) g/dL Albumin (3.5-5.0) g/dL Urine Color Yellow (Yellow) Urine Appearance Clear (Clear) Urine pH 5.0 (4.6-8.0) Ur Specific [place] 1.020 (1.005-1.030) Urine Protein Negative (Negative) Urine Glucose (UA) Negative (Negative) mg/dL Urine Ketones Negative (Negative) Urine Blood Negative (Negative) Urine Nitrite Negative (Negative) Urine Bilirubin Negative (Negative) Urine Urobilinogen 0.2 (0.2) mg/dL Ur Leukocyte Esterase Negative (Negative) U Hyaline Cast (Auto) NONE SEEN (0-2) /LPF Urine Microscopic RBC 0-2 (0-5) /HPF Urine Microscopic WBC 0-2 (0-5) /HPF Ur Epithelial Cells Moderate A (None Seen) /HPF Urine Bacteria Moderate A (None Seen) /HPF Urine Culture Reflexed YES (NO) Urine HCG, Qual (NEGATIVE) Urine Opiates Level NEGATIVE (NEGATIVE) Ur Methadone NEGATIVE (NEGATIVE) Urine Barbiturates NEGATIVE (NEGATIVE) Ur Phencyclidine (PCP) NEGATIVE (NEGATIVE) Urine Amphetamine NEGATIVE (NEGATIVE) U Benzodiazepine Level NEGATIVE (NEGATIVE) Urine Cocaine NEGATIVE (NEGATIVE) Urine Marijuana (THC) NEGATIVE (NEGATIVE) - Progress Progress: improved Progress Note: 27-year-old female presents to our ED for evaluation of severe headache after chiropractic neck manipulation. The immediate concern was possible arterial dissection. Work-up negative. Patient's headache treated. Headache significantly improved. Repeat neuro exam within normal limits. Patient is ready for discharge. Patient very grateful regarding her care in our ED. No indication for further work-up at this time. Will discharge home. Patient agrees to follow-up with primary care doctor within 48 hours for reevaluation. Portions of this note were created with voice recognition technology. There may be grammatical, spelling, punctuation or sound alike errors 02/16/23 07:04 Work-up entailed CBC, CMP, UA, CTA head neck. Work-up essentially nonremarkable. Complexity of problem addressed is moderate. New diagnosis of uncertain prognosis. Complexity of data reviewed and analyzed is moderate. Independent interpretation of laboratory results. Labs ordered. Review of CT head. Risk of complication and or risk morbidity/patient mortality is moderate. Patient received CT scan with IV contrast. Patient is well at this time. Will discharge home. Patient agrees to follow-up with primary care doctor within 48 hours for reevaluation. Vital stable. Portions of this note were created with voice recognition technology. There may be grammatical, spelling, punctuation or sound alike errors 02/16/23 07:06 Counseled pt/family regarding: lab results, diagnosis, need for follow-up, rad results - Departure Departure Disposition: Home Clinical Impression: Migraine Condition: Stable Critical Care Time: No Referrals: MONIQUE GONZALEZ SQL DATA ANALYST [Primary Care Provider] - Follow up/PCP as directed Instructions: Migraines in Adults Additional Instructions: Discharge/Care Plan HEDYPhilipDANIELITOCHRISTIAN ROSE was seen on 02/15/23 in the Emergency Room. The patient was counseled regarding Diagnosis,Lab results, Imaging studies, need for follow up and when to return to the Emergency Room. Prescriptions given: Discharge Note I have spoken with the patient and/or caregivers. I have explained the patient's condition, diagnosis and treatment plan based on the information available to me at this time. I have answered the patient's and/or caregiver's questions and addressed any concerns. The patient and/or caregivers have as good understanding of the patient's diagnosis, condition and treatment plan as can be expected at this point. The vital signs have been stable. The patient's condition is stable and appropriate for discharge from the emergency department. The patient will pursue further outpatient evaluation with the primary care physician or other designated or consulting physician as outlined in the discharge instructions. The patient and/or caregivers are agreeable to this plan of care and follow-up instructions have been explained in detail. The patient and/or caregivers have received these instruction. The patient/and or caregivers are aware that any significant change in condition or worsening of symptoms should prompt an immediate return to this or the closest emergency department or call 911.
[2023-02-15 21:57] VITALS: BP 143/88; PULSE 67
[2023-02-16 07:04] VITALS: O2SAT 99
--- NOTE | 2023-02-16 08:43 | XRAY ---
Indication: Left migraine headache. Right body numbness. Status post chiropractic manipulation. Dissection. Conventional contrast enhanced CTA neck performed using 100 cc Isovue 370 contrast. 2-D sagittal and coronal reformatted images obtained. Additional 3-D reformatted images obtained using separate workstation. Comparison: None Visualized aortic arch demonstrates anatomic variant for a bovine arch. Widely patent branching right brachiocephalic, left common carotid, and left subclavian arteries. Normal CTA appearance to the common carotid, carotid bulb, internal carotid, and external carotid arteries bilaterally. Vertebral arteries are bilaterally symmetric and also normal in CTA appearance. Visualized soft tissues demonstrates a few tiny bilateral cervical and submandibular lymph nodes, none pathologically enlarged. Parotid and submandibular glands are bilaterally symmetric. Thyroid gland enhances homogeneously. Supra and infraglottic airway widely patent. Lung apices are inflated and clear. Visualized osseous structures and cervical spine intact. Impression: Normal CTA neck with contrast exam.
--- NOTE | 2023-02-16 08:47 | XRAY ---
Indication: Left migraine headache. Right body numbness. Status post chiropractic manipulation. Dissection. Initial CT head was performed without contrast. Then conventional contrast enhanced CTA head performed using 100 cc Isovue 370 contrast. 2-D sagittal and coronal reformatted images obtained. Additional 3-D reformatted images obtained using separate workstation. Comparison: None CT head without contrast exam can see is normal brain parenchyma, ventricles, and bony calvarium. Visualized paranasal sinuses and mastoid air cells are clear. CTA images demonstrates bilaterally symmetric internal carotid arteries without arteriosclerotic disease, critical stenosis, obstruction, or AV malformation. Normal carotid terminus with normal branching A1 and M1 segments bilaterally. More distal anterior cerebral, middle cerebral, anterior communicating, and posterior communicating arteries are normal in CTA appearance. Posterior circulation demonstrates normal CT appearance to the basilar, left/right posterior cerebral, and left/right superior cerebellar arteries. Venous sinuses/drainage are unremarkable. Brain parenchyma is negative for abnormal enhancing intra or extra-axial mass. Impression: 1. Normal CT head without contrast exam. 2. Normal CTA head with contrast exam.
== END 2023-02-15 22:00 | disposition home or self-care (01) ==
LOC: ED 18:18
DX: G43.909 Migraine, unspecified, not intractable, without status migrainosus (principal); I10 Essential (primary) hypertension; Z79.85 Long-term (current) use of injectable non-insulin antidiabetic drugs; Z79.899 Other long term (current) drug therapy; Z28.310 Unvaccinated for COVID-19
CPT/HCPCS: 36000; 36415; 70496; 70498; 80053; 80307; 81001; 81025; 85025; 87077; 87086; 87186; 93041; 94760; 96360; 96374; 99284; A9270-GY